=== PATIENT | male | born 1945 | race Asian ===

== ENCOUNTER 2023-11-01 12:01 | Emergency (ER) | payer MEDICARE, OTHER, SELFPAY ==
[2023-11-01] VITALS (7 sets, daily range): BP systolic 107–132; BP diastolic 58–77; BMI 26.4
[2023-11-01 12:25] LABS: % Basophils 0.2 % (0-2); % Eosinophils 0.9 % (0-6); % Lymphocytes 14.1 % (20.5-51.1); % Neutrophils 74.8 % (42.2-75.2); Absolute Eosinophils 0.1 10^3/uL (0-0.7); Absolute Immature Granulocytes 0.1 10^3/uL (0-0.05); Absolute Lymphocytes 1.4 10^3/uL (1.2-3.4); Absolute Monocytes 0.9 10^3/uL (0.1-0.6); Absolute Neutrophils 7.3 10^3/uL (1.4-6.5); Hematocrit 30.1 % (39.0-52.0); Hemoglobin 10.2 g/dL (13.0-18.0); Mean Corp Hgb Conc. 33.9 g/dL (33.0-37.0); Mean Corpuscular Hgb 29.8 pg (27.0-31.0); Mean Platelet Volume 8.9 fL (7.4-10.4); Nucleated Red Blood Cells % 0 % (-); Platelet Count 393 10^3/uL (130-400); Red Blood Cell Count 3.42 10^6/uL (4.70-6.10); Red Cell Dist. Width 13.6 % (11.5-14.5); White Blood Cell Count 9.7 10^3/uL (4.8-10.8)
[2023-11-01 12:37] LABS: INR 1.15; PT 14.7 Sec (11.4-14.6)
[2023-11-01 12:38] LABS: ALT (SGPT) 54 U/L (0-50); AST (SGOT) 37 U/L (17-59); Albumin 3.9 g/dl (3.5-5.0); Alkaline Phosphatase 69 U/L (38-126); Blood Urea Nitrogen 28 mg/dl (9-20); Calcium 9.4 mg/dl (8.4-10.2); Carbon Dioxide 28 mmol/L (22-30); Chloride 97 mmol/L (98-107); Estimated Creatinine Clearance 80 ml/min; Glucose 217 mg/dl (70-99); Potassium 5.1 mmol/L (3.5-5.1); Sodium 131 mmol/L (135-145); eGFR > 60.00
[2023-11-01 12:45] LABS: Lactic Acid 2.4 mmol/L (0.7-2.0)
--- NOTE | 2023-11-01 12:50 | ED.GENMED ---
History of Present Illness
General
Chief Complaint: Abdominal Symptoms
Source: patient
Exam Limitations: none
Time Seen by Provider: 11/01/23 12:08
Nursing documentation reviewed up to this point in time: agreed with
Travel History
Have you had any contact with someone who has COVID-19?: No
Do you have any symptoms of coronavirus? Fever > 100 degrees, chills, cough, shortness of breath, sore throat, loss of taste or smell, muscle aches, or headache?: No
History of Present Illness
History of Present Illness:
Patient is a 78-year-old male with history of stroke [facility] sent for abdominal distention painful abdomen. Patient is awake alert. Family at bedside. Due to stroke patient has difficulty with his words. He does repeat the word ,'gas.'
Nurse at [facility] reports pt's abdomen appears distended and he was tender to palpation. Pt's last BM was the Oct 30. no vomiting.
Pt as per family eats pureed diet twice a day and at night time he is on tube feeling 320 ml during sleep .
He was recently started on antibx (Augmentin ) yesterday for URI . Nurse reports pt was coughing /congestion. pt had neg chest xray.
Past History
Past History
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
ED Past Surgical History: None
Social History
Tobacco: Non-smoker
Alcohol: None
Employment: Retired
Family History
Family History: Other (Reviewed and noncontributory)
Phy Exam
General Physical Exam
General Presentation: no apparent distress
General age: appears stated age
General Skin: warm and dry
General Habitus: elderly
General Mental: alert
Cardiovascular Exam
Cardiovascular Exam: regular rate/rhythm, no murmur and normal peripheral pulses
Pulmonary Exam
Pulmonary Exam: no respiratory distress and other (slight crackles at b/l bases )
Gastrointestinal Exam
Gastrointestinal Exam: soft and other (Abdomen soft nontender patient does not grimace on palpation PEG tube in place appears mildly distended)
Neurological Exam
Neurological Exam: alert
Musculoskeletal Exam
Musculoskeletal Exam: full ROM
Skin Exam
Skin Exam: normal color and warm/dry
Psychiatric Exam
Psychiatric Exam: normal mood/affect
Course
Orders/Labs/Results
Orders:
Orders
11/01/23 12:06
Electrocardiogram (*1) Urgent
Reason for Study: Other
Other Reason for Exam: Possible Sepsis
11/01/23 12:07
EKG- Treatment ONCE
CR Chest - 2 Views Urgent
Comment:
Reason For Exam: suspected infection
11/01/23 12:15
Complete Blood Count/With Diff Urgent
Comprehensive Metabolic Panel Urgent
Prothrombin Time Urgent
Blood Culture Q30M
YAKELIN Source: Blood/Venous
Specimen Description:
Comment: FROM 2 SEPARATE SITES
11/01/23 12:16
Lactic Acid Q4H
Comment: ON ICE, CANCEL 2ND ORDER IF FIRST LACTIC ACID LEVEL <2
11/01/23 12:54
0.9% Sodium Chloride 1000 ml [Nss] 1,000 ml IV BOLUS
11/01/23 12:55
Blood Culture Q30M
YAKELIN Source: Blood/Venous
Specimen Description:
Comment: FROM 2 SEPARATE SITES
11/01/23 12:57
Straight cath- Treatment ONCE
11/01/23 12:59
CT Abd/pelvis W Iv Cont Urgent
Comment:
Reason For Exam: abd pain
11/01/23 13:00
COVID-19 Antigen Urgent
Source: Nasal Swab
Influenza A+B Rapid Molecular Urgent
YAKELIN Source: Nasal Swab
Specimen Description:
11/01/23 13:09
UA Reflex to Culture [Urinalysis Reflex To Culture] Urgent
Date Specimen was Collected: 11/01/23
Time Specimen was Collected: 13:08
Urine Microscopic Reflex Cult Urgent
11/01/23 17:00
Lactic Acid Q4H
Comment: ON ICE, CANCEL 2ND ORDER IF FIRST LACTIC ACID LEVEL <2
11/01/23 17:48
Enema- Treatment ONCE
Type: Soap Suds
Amount: x1
Abnormal Lab Results
11/01/23 11/01/23 11/01/23
12:15 12:16 13:09
RBC 3.42 L 10^6/uL
(4.70-6.10)
Hgb 10.2 L g/dL
(13.0-18.0)
Hct 30.1 L %
(39.0-52.0)
Abs Immat Gran (auto) 0.1 H 10^3/uL
(0-0.05)
Absolute Neuts (auto) 7.3 H 10^3/uL
(1.4-6.5)
Absolute Monos (auto) 0.9 H 10^3/uL
(0.1-0.6)
Immature Gran % 1.0 H %
(0-0.5)
Lymphocytes % 14.1 L %
(20.5-51.1)
PT 14.7 H Sec
(11.4-14.6)
Sodium 131 L mmol/L
(135-145)
Chloride 97 L mmol/L
(98-107)
BUN 28 H mg/dl
(9-20)
Glucose 217 H mg/dl
(70-99)
Lactic Acid 2.4 H mmol/L
(0.7-2.0)
ALT 54 H U/L
(0-50)
Urine Urobilinogen 2+ A
(Neg - 1+)
Leukocyte Esterase Rfl Trace A
(Negative)
Urine Bacteria (Reflex) Few A
(Negative)
Urine Glucose 1+ A
(Negative)
11/01/23 12:15
11/01/23 12:15
Vital Signs
Initial and Last Documented VS:
Initial Vital Signs
Temp Pulse Resp BP Pulse Ox
98.1 F 64 16 132/69 97
11/01/23 12:05 11/01/23 12:05 11/01/23 12:05 11/01/23 12:05 11/01/23 12:05
Last Documented Vital Signs
Temp Pulse Resp BP Pulse Ox
98.0 F 58 13 132/71 97
11/01/23 18:06 11/01/23 18:06 11/01/23 13:45 11/01/23 18:06 11/01/23 18:06
Proposal Rep consulted with Physician
Proposal Rep consulted with physician?: Yes
Name of Physician Consulted: Millie
*Radiology
Radiology exam reviewed: radiology read reviewed (CAT scan shows large amount of stool throughout the entire colon consistent with constipation no free air no fluid collection to suggest abscess)
*Pulse Oximetry
Patient hypoxic: no
*Critical Care Note
Total Time (30-74mins, 75-104mins- exclusive of procedures): Not Applicable
ED Attending Note
-
Portions of this chart may have been created with voice recognition software.� Occasional wrong word or��sound alike� substitutions may have occurred due to the inherent limitations of voice recognition software.
Discharge Plan
Departure
Patient Disposition: Home (Routine Discharge)
Date of Disposition: 11/01/23
Time of Disposition: 19:04
Patient with high blood pressure during this ER visit?: Yes
Condition: Fair
Covid-19: Not Applicable
Discharge Problem:
Acute constipation
Instructions: Constipation, Adult (DC)
Prescriptions:
No Action
olmesartan 20 mg Tablet
20 mg feeding tube DAILY@1300 Qty: 0 0RF
cyanocobalamin (vitamin B-12) 1,000 mcg Tablet
1,000 mcg feeding tube DAILY Qty: 0 0RF
magnesium hydroxide [Milk of Magnesia] 400 mg/5 mL Suspension
30 ml PO HSPRN PRN (Reason: CONSTIPATION)
acetaminophen 160 mg/5 mL Elixir
640 mg feeding tube Q4HPRN PRN (Reason: MILD PAIN, FEVER>100.4)
docusate sodium 50 mg/5 mL liquid
100 mg feeding tube BID
atorvastatin 80 mg tablet
80 mg feeding tube QPM
clopidogrel 75 mg tablet
75 mg feeding tube DAILY
sennosides [senna] 8.8 mg/5 mL syrup
17.6 mg feeding tube BID
spironolactone 25 mg tablet
25 mg feeding tube DAILY
bisacodyl 10 mg suppository
10 mg [place] [id number] PRN (Reason: MOM/LACTULOSE INEFFECTIVE)
carvedilol [Coreg] 12.5 mg Tablet
12.5 mg feeding tube BID
ipratropium-albuterol [DuoNeb] 0.5 mg-3 mg(2.5 mg base)/3 mL Solution For Nebulization
3 ml INHALATION R Q8HPRN PRN (Reason: sob)
lidocaine 4 % Adhesive Patch,Medicated
1 patch TOPICAL SUTUWEFRSA
lidocaine 4 % Adhesive Patch,Medicated
1 patch TOPICAL MOTH
dextromethorphan-guaifenesin [Diabetic Tussin] 10-100 mg/5 mL Liquid
10 ml PO Q6HPRN PRN (Reason: cough)
Chloraseptic Aerosol,[place]
1 spray MUCOUS MEMBRANE Q2HPRN PRN (Reason: sore throat)
trazodone 100 mg Tablet
100 mg feeding tube HS
dexamethasone 1 mg Tablet
1 mg feeding tube QPM
oseltamivir [Tamiflu] 75 mg Capsule
75 mg feeding tube DAILY
Patient Comments:
patient to start 10/28/23
metformin 1,000 mg Tablet
1,000 mg feeding tube BID
aspirin 81 mg Tablet,Chewable
81 mg feeding tube DAILY
amoxicillin-pot clavulanate [Augmentin] 875-125 mg Tablet
1 tab feeding tube TID
Patient Comments:
patient first dose on 10/31/23 @1600
escitalopram oxalate [Lexapro] 20 mg Tablet
20 mg feeding tube QPM
Saccharomyces boulardii [Florastor] 250 mg Capsule
250 mg feeding tube DAILY
Patient Comments:
for 10 days, for start 11/01/23
insulin glargine [Lantus Solostar U-100 Insulin] 100 unit/mL (3 mL) Insulin Pen
27 unit SC HS
diclofenac sodium [Voltaren] 1 % Gel
2 g TOPICAL Q8H
diclofenac sodium [Voltaren] 1 % Gel
2 g TOPICAL BID
diclofenac sodium [Voltaren] 1 % Gel
2 g TOPICAL DAILYPRN PRN (Reason: lower back, when lidocaine not one)
cholecalciferol (vitamin D3) 1,250 mcg (50,000 unit) Tablet
1,250 mcg feeding tube QMONTH
Rx Instructions:
every Sunday of each month
baclofen 5 mg Tablet
2.5 mg feeding tube DAILY
baclofen 5 mg Tablet
5 mg feeding tube HS
insulin aspart U-100 [Novolog FlexPen U-100 Insulin] 100 unit/mL (3 mL) insulin pen
0 unit SC ACHS
Patient Comments:
0-200=0 units, 201-250=2units, 251-300=4 units, 301-350=6 units
Referrals:
NONE,* [Family Provider] -
Activity Restrictions/Additional Instructions:
CAT scan was performed today which showed a large amount of stool through the entire colon consistent with constipation. Patient was given enema here and did move his bowels. There is no free air or collection to suggest abscess. PEG tube is
normally visualized. Patient was found to be mildly dehydrated and was given nss x1 liter. Chest x-ray was negative. Patient was found negative for COVID and flu
There is however an 8 mm hypodensity abnormality as discussed on pancreas region. Follow-up recommended including MRI of the abdomen.
Return if any worsening of symptoms including increased pain vomiting or any further concerns
Interventions
Interventions:
*Risk Screen - Suicide Last Done: 11/01/23 12:05
*General Assessment Last Done: 11/01/23 12:05
*Neglect/Abuse Screening Last Done: 11/01/23 12:05
ED- Fall Risk Assessment Last Done: 11/01/23 12:05
*ED COVID-19 Vaccine History Last Done: 11/01/23 12:05
AR-Vvdivf-Dfkxztrkqy Assessment Last Done: 11/01/23 12:05
[2023-11-01] MEDS: NSS 1000 IV (13:22)
[2023-11-01 13:56] LABS: COVID-19 Antigen Negative (Negative)
[2023-11-01 14:10] LABS: Urine Albumin Trace (Neg - Trace); Urine Bilirubin Negative (Negative); Urine Character Clear (Clear); Urine Color Yellow; Urine Glucose 1+ (Negative); Urine Ketone Negative (Negative); Urine Leukocyte Trace (Negative); Urine Nitrite Negative (Negative); Urine Occult Blood Negative (Negative); Urine Urobilinogen 2+ (Neg - 1+)
[2023-11-01 14:21] LABS: Urine Red Blood Cell 0-2 /HPF (0-2)
[2023-11-01 14:22] LABS: Urine Bacteria Few (Negative)
[2023-11-01 17:22] LABS: Lactic Acid 1.5 mmol/L (0.7-2.0)
== END 2023-11-01 21:13 | disposition home or self-care (01) ==
LOC: EMR 12:01
PROVIDERS: Nurse Practitioner; EMERGENCY PHYSICIAN Emergency Medicine
DX: K59.00 Constipation, unspecified (principal); I10 Essential (primary) hypertension; Z11.52 Encounter for screening for COVID-19
CPT/HCPCS: 99285; 96360; 71046; 74177; 80053; 81003; 81015; 83605; 85025; 85610; 87040; 87502; 87811; 93005; Q9967

== ENCOUNTER 2023-11-14 11:03 | Emergency (ER) | payer MEDICARE, MEDICAID, SELFPAY ==
--- NOTE | 2023-11-14 11:06 | ED.GENMED ---
History of Present Illness
General
Chief Complaint: Catheter/Tube Problem
Time Seen by Provider: 11/14/23 11:06
Travel History
Have you had any contact with someone who has COVID-19?: No
Do you have any symptoms of coronavirus? Fever > 100 degrees, chills, cough, shortness of breath, sore throat, loss of taste or smell, muscle aches, or headache?: No
History of Present Illness
History of Present Illness:
HPI: Patient presents by ambulance from [facility] for evaluation of G-tube site. The notes from [facility] indicate that there was oozing at the site and they request change of the tube. The patient is a very limited historian. However
he denies any pain.
EXAM:
GENERAL: Appears in no distress
HEENT: Moist oral mucosa
CARDIOVASCULAR: Regular rate and rhythm
PULMONARY: No respiratory distress, breathing is nonlabored, equal and clear breath sounds
ABDOMEN: Soft and nontender with no peritoneal signs, there is some scant yellow discharge at the G-tube site but no palpable abnormality and no significant erythema or signs of infection
NEUROLOGIC: The patient has a nonfocal neurologic examination, some dysarthria is noted which I suspect is chronic
EXTREMITIES: Moves all extremities weakly equally, no tenderness, no edema
PYSCHIATRIC: Very limited historian, poor insight and judgment
ED COURSE:
11:10 AM: I initially evaluated patient
NUMBER AND COMPLEXITY OF PROBLEMS ADDRESSED AT THE ENCOUNTER
� Chronic conditions affecting care: History of CVA. He also has history of high blood pressure and diabetes. BPH.
� Acute Exacerbation and/or Progression of Chronic Illness: This is an acute problem
� Differential Diagnosis includes: G-tube malfunction
AMOUNT AND/OR COMPLEXITY OF DATA TO BE REVIEWED AND ANALYZED
� I performed an independent evaluation of and my interpretation is:
EKG:
CT:
X-rays: X-ray confirms successful placement of new feeding tube
Laboratory Studies:
Other:
� Review of other/old records: I reviewed discharge summary from September 2022. At that time he was admitted with sepsis due to COVID-19 viral pneumonia and required oxygen and was on Decadron. He was also found to have a
Proteus UTI at the time. He also was found to have 'metabolic encephalopathy'. On prior admission he was found to have a CVA. He also has history of high blood pressure and diabetes
� Clinical information was obtained by an independent historian: I reviewed the notes from [facility]
� Prescriptions/Medications Considered but not given:
� Further testing considered but not performed:
RISK OF COMPLICATIONS AND/OR MORBIDITY OR MORTALITY OF PATIENT MANAGEMENT
� Social determinants of health affecting care: Comes in from [facility]
� Discussion with other providers:
� Escalation of care including admission/observation vs risk of discharge considered: Will plan to change the tube and reassess. At 11:20 AM, I changed to a new tube. I removed the externally removable G-tube without difficulty
on 1 attempt and then placed a new 20 [place] catheter and inflated the balloon with 14 mL of saline.
Past History
Past History
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
ED Past Surgical History: None
Social History
Tobacco: Non-smoker
Alcohol: None
Employment: Retired
Family History
Family History: Other (Reviewed and noncontributory)
Phy Exam
Physical Exam
Physical Exam:
See HPI
Course
Orders/Labs/Results
Orders:
Orders
11/14/23 11:21
CR Cont Inj Eval Tube(by Rad) Urgent
Reason For Exam: TUBE CHANGED, EVAL PLACEMENT
Vital Signs
Initial and Last Documented VS:
Initial Vital Signs
Temp Pulse Resp BP Pulse Ox
98.7 F 69 18 125/73 99
11/14/23 11:07 11/14/23 11:07 11/14/23 11:07 11/14/23 11:07 11/14/23 11:07
Last Documented Vital Signs
Temp Pulse Resp BP Pulse Ox
98.7 F 69 18 128/75 99
11/14/23 11:07 11/14/23 12:00 11/14/23 12:00 11/14/23 12:00 11/14/23 12:00
Procedures
Other
Indication for procedure:: G-tube malfunction
Consent form signed: No
Additional Procedure:
I placed a new 20 Jama[place] G-tube on 1 attempt with no difficulty. Tube placement confirmation study pending.
*Critical Care Note
Total Time (30-74mins, 75-104mins- exclusive of procedures): Not Applicable
ED Attending Note
-
Portions of this chart may have been created with voice recognition software.� Occasional wrong word or��sound alike� substitutions may have occurred due to the inherent limitations of voice recognition software.
Discharge Plan
Departure
Patient Disposition: Home (Routine Discharge)
Date of Disposition: 11/14/23
Time of Disposition: 13:11
Patient with high blood pressure during this ER visit?: Yes
Discharge Problem:
Complaint associated with gastric tube
Prescriptions:
No Action
olmesartan 20 mg Tablet
20 mg feeding tube DAILY@1300 Qty: 0 0RF
cyanocobalamin (vitamin B-12) 1,000 mcg Tablet
1,000 mcg feeding tube DAILY Qty: 0 0RF
magnesium hydroxide [Milk of Magnesia] 400 mg/5 mL Suspension
30 ml PO HSPRN PRN (Reason: CONSTIPATION)
acetaminophen 160 mg/5 mL Elixir
640 mg feeding tube Q4HPRN PRN (Reason: MILD PAIN, FEVER>100.4)
docusate sodium 50 mg/5 mL liquid
100 mg feeding tube BID
atorvastatin 80 mg tablet
80 mg feeding tube QPM
clopidogrel 75 mg tablet
75 mg feeding tube DAILY
sennosides [senna] 8.8 mg/5 mL syrup
17.6 mg feeding tube BID
spironolactone 25 mg tablet
25 mg feeding tube DAILY
bisacodyl 10 mg suppository
10 mg [place] [id number] PRN (Reason: MOM/LACTULOSE INEFFECTIVE)
carvedilol [Coreg] 12.5 mg Tablet
12.5 mg feeding tube BID
ipratropium-albuterol [DuoNeb] 0.5 mg-3 mg(2.5 mg base)/3 mL Solution For Nebulization
3 ml INHALATION R Q8HPRN PRN (Reason: sob)
lidocaine 4 % Adhesive Patch,Medicated
1 patch TOPICAL SUTUWEFRSA
lidocaine 4 % Adhesive Patch,Medicated
1 patch TOPICAL MOTH
dextromethorphan-guaifenesin [Diabetic Tussin] 10-100 mg/5 mL Liquid
10 ml PO Q6HPRN PRN (Reason: cough)
Chloraseptic Aerosol,[place]
1 spray MUCOUS MEMBRANE Q2HPRN PRN (Reason: sore throat)
trazodone 100 mg Tablet
100 mg feeding tube HS
dexamethasone 1 mg Tablet
1 mg feeding tube QPM
oseltamivir [Tamiflu] 75 mg Capsule
75 mg feeding tube DAILY
Patient Comments:
patient to start 10/28/23
metformin 1,000 mg Tablet
1,000 mg feeding tube BID
aspirin 81 mg Tablet,Chewable
81 mg feeding tube DAILY
amoxicillin-pot clavulanate [Augmentin] 875-125 mg Tablet
1 tab feeding tube TID
Patient Comments:
patient first dose on 10/31/23 @1600
escitalopram oxalate [Lexapro] 20 mg Tablet
20 mg feeding tube QPM
Saccharomyces boulardii [Florastor] 250 mg Capsule
250 mg feeding tube DAILY
Patient Comments:
for 10 days, for start 11/01/23
insulin glargine [Lantus Solostar U-100 Insulin] 100 unit/mL (3 mL) Insulin Pen
27 unit SC HS
diclofenac sodium [Voltaren] 1 % Gel
2 g TOPICAL Q8H
diclofenac sodium [Voltaren] 1 % Gel
2 g TOPICAL BID
diclofenac sodium [Voltaren] 1 % Gel
2 g TOPICAL DAILYPRN PRN (Reason: lower back, when lidocaine not one)
cholecalciferol (vitamin D3) 1,250 mcg (50,000 unit) Tablet
1,250 mcg feeding tube QMONTH
Rx Instructions:
every Sunday of each month
baclofen 5 mg Tablet
2.5 mg feeding tube DAILY
baclofen 5 mg Tablet
5 mg feeding tube HS
insulin aspart U-100 [Novolog FlexPen U-100 Insulin] 100 unit/mL (3 mL) insulin pen
0 unit SC ACHS
Patient Comments:
0-200=0 units, 201-250=2units, 251-300=4 units, 301-350=6 units
Referrals:
Aleksander Vasquez DO [Family Provider] -
Interventions
Interventions:
*Risk Screen - Suicide Last Done: 11/14/23 11:35
*General Assessment Last Done: 11/14/23 11:35
*Neglect/Abuse Screening Last Done: 11/14/23 11:35
*ED COVID-19 Vaccine History Last Done: 11/14/23 11:07
QL-Iafyqk-Soayzhjiju Assessment Last Done: 11/14/23 11:38
ED-Male Genitourinary Assessment Last Done: 11/14/23 11:38
[2023-11-14 11:07] VITALS: BP 125/73
--- NOTE | 2023-11-14 11:36 | EDRN ---
[facility] at bedside, the pt has a documented history of Dementia and Aphasia folloing CVA. pt is a poor historian and not able to answer questions appropriately.
[2023-11-14 12:00] VITALS: BP 128/75
[2023-11-14 13:39] VITALS: BP 128/64
[2023-11-14 17:20] VITALS: BP 132/85
== END 2023-11-14 17:45 | disposition home or self-care (01) ==
LOC: EMR 11:03
PROVIDERS: EMERGENCY PHYSICIAN Emergency Medicine; FAMILY PHYSICIAN Student in an Organized Health Care Education/Training Program
DX: Z43.1 Encounter for attention to gastrostomy (principal); E11.9 Type 2 diabetes mellitus without complications; E78.00 Pure hypercholesterolemia, unspecified; I10 Essential (primary) hypertension; Z86.73 Personal history of transient ischemic attack (TIA), and cerebral infarction without residual deficits
CPT/HCPCS: 99283; 43762; 49465

== ENCOUNTER → 2024-01-02 09:02 | Outpatient (REF) | payer MEDICARE, MEDICAID, SELFPAY ==
[2024-01-02 12:48] LABS: Glycohemoglobin (HgbA1c) 8.2 % (4.0-5.6)
== END ==
LOC: OLABN 09:02
PROVIDERS: ATTENDING PHYSICIAN Student in an Organized Health Care Education/Training Program
DX: E11.9 Type 2 diabetes mellitus without complications (principal)
CPT/HCPCS: 36415; 83036

== ENCOUNTER → 2024-01-16 11:11 | Outpatient (REF) | payer MEDICARE, MEDICAID, SELFPAY ==
[2024-01-16 11:50] LABS: % Basophils 0.4 % (0-2); % Eosinophils 3.2 % (0-6); % Immature Granulocytes 0.7 % (0-0.5); % Lymphocytes 13.7 % (20.5-51.1); % Monocytes 7.5 % (1.7-9.3); % Neutrophils 74.5 % (42.2-75.2); Absolute Eosinophils 0.4 10^3/uL (0-0.7); Absolute Immature Granulocytes 0.1 10^3/uL (0-0.05); Absolute Lymphocytes 1.5 10^3/uL (1.2-3.4); Absolute Monocytes 0.8 10^3/uL (0.1-0.6); Absolute Neutrophils 8.1 10^3/uL (1.4-6.5); Hematocrit 29.6 % (39.0-52.0); Hemoglobin 9.5 g/dL (13.0-18.0); Mean Corp Hgb Conc. 32.1 g/dL (33.0-37.0); Mean Corpuscular Hgb 29.4 pg (27.0-31.0); Mean Corpuscular Volume 91.6 fL (80.0-94.0); Mean Platelet Volume 9.9 fL (7.4-10.4); Nucleated Red Blood Cells % 0 % (-); Platelet Count 314 10^3/uL (130-400); Red Blood Cell Count 3.23 10^6/uL (4.70-6.10); Red Cell Dist. Width 13.2 % (11.5-14.5); White Blood Cell Count 10.9 10^3/uL (4.8-10.8)
[2024-01-16 13:01] LABS: Glycohemoglobin (HgbA1c) 8.3 % (4.0-5.6)
[2024-01-16 13:17] LABS: ALT (SGPT) 63 U/L (0-50); AST (SGOT) 46 U/L (17-59); Albumin 3.5 g/dl (3.5-5.0); Alkaline Phosphatase 71 U/L (38-126); Blood Urea Nitrogen 26 mg/dl (9-20); Carbon Dioxide 27 mmol/L (22-30); Chloride 96 mmol/L (98-107); Glucose 251 mg/dl (70-99); HDL Cholesterol 21 mg/dl; LDL Cholesterol, Calculated 19 mg/dl; Potassium 4.7 mmol/L (3.5-5.1); Sodium 132 mmol/L (135-145); Total Bilirubin 0.4 mg/dl (0.2-1.3); Total Cholesterol 78 mg/dl (50-199); Total Protein 6.3 g/dl (6.3-8.2); Triglyceride 190 mg/dl (10-149); Very Low Density Lipoprotein 38 mg/dl (0-30); eGFR > 60.00
== END ==
LOC: OLABN 11:11
PROVIDERS: ATTENDING PHYSICIAN Student in an Organized Health Care Education/Training Program
DX: R78.5 Finding of other psychotropic drug in blood (principal); E11.9 Type 2 diabetes mellitus without complications
CPT/HCPCS: 36415; 80053; 80061; 83036; 85025

== ENCOUNTER 2024-05-10 16:46 | Emergency (ER) | payer MEDICARE, MEDICAID, SELFPAY ==
[2024-05-10] VITALS (10 sets, daily range): BP systolic 130–157; BP diastolic 69–88; BMI 25.5
[2024-05-10 17:35] LABS: % Basophils 0.4 % (0-2); % Eosinophils 1.3 % (0-6); % Immature Granulocytes 0.5 % (0-0.5); % Monocytes 8.6 % (1.7-9.3); % Neutrophils 69.2 % (42.2-75.2); Absolute Eosinophils 0.1 10^3/uL (0-0.7); Absolute Lymphocytes 1.7 10^3/uL (1.2-3.4); Absolute Monocytes 0.7 10^3/uL (0.1-0.6); Absolute Neutrophils 5.9 10^3/uL (1.4-6.5); Hematocrit 32.8 % (39.0-52.0); Hemoglobin 11.3 g/dL (13.0-18.0); Mean Corp Hgb Conc. 34.5 g/dL (33.0-37.0); Mean Corpuscular Hgb 29.7 pg (27.0-31.0); Mean Corpuscular Volume 86.1 fL (80.0-94.0); Mean Platelet Volume 9.8 fL (7.4-10.4); Nucleated Red Blood Cells % 0 % (-); Platelet Count 243 10^3/uL (130-400); Red Blood Cell Count 3.81 10^6/uL (4.70-6.10); Red Cell Dist. Width 14.5 % (11.5-14.5); White Blood Cell Count 8.6 10^3/uL (4.8-10.8)
[2024-05-10 17:48] LABS: ALT (SGPT) 44 U/L (0-50); AST (SGOT) 35 U/L (17-59); Albumin 4.3 g/dl (3.5-5.0); Alkaline Phosphatase 58 U/L (38-126); Blood Urea Nitrogen 24 mg/dl (9-20); Calcium 9.8 mg/dl (8.4-10.2); Carbon Dioxide 30 mmol/L (22-30); Chloride 96 mmol/L (98-107); Estimated Creatinine Clearance 97 ml/min; Glucose 186 mg/dl (70-99); Lipase 108 U/L (23-300); Potassium 4.5 mmol/L (3.5-5.1); Sodium 136 mmol/L (135-145); Total Bilirubin 0.7 mg/dl (0.2-1.3); eGFR > 60.00
--- NOTE | 2024-05-10 18:30 | ED.GENMED ---
History of Present Illness
General
Chief Complaint: Catheter/Tube Problem
Time Seen by Provider: 05/10/24 18:26
History of Present Illness
History of Present Illness:
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 Per patient fpc he was having abdominal
tenderness which is unusual. He does have a baseline distended abdomen. They attempted to replace his PEG tube but were unsuccessful. Patient is able to state yes that he is having pain. He denies any vomiting. He denies any fevers. Normal
bowel movements. Otherwise history is limited given patient's aphasia
Past History
Past History
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
ED Past Surgical History: None
Social History
Tobacco: Non-smoker
Alcohol: None
Employment: Retired
Family History
Family History: Other (Reviewed and noncontributory)
Phy Exam
Physical Exam
Physical Exam:
GENERAL: in no acute distress
HEENT: normocephalic, extraocular movements intact, moist oral mucosa
NECK: normal inspection
RESPIRATORY: no respiratory distress, clear to auscultation bilaterally
CARDIOVASCULAR: regular rate and rhythm
ABDOMEN/: soft, non-distended, diffusely tender, PEG tube in place no rebound or guarding
EXTREMITIES: non-tender, no edema/swelling
NEUROLOGIC: awake and alert, answers yes or no questions
SKIN: warm
Course
Orders/Labs/Results
Orders:
Orders
05/10/24 17:27
Complete Blood Count/With Diff Urgent
Comprehensive Metabolic Panel Urgent
Lipase Urgent
05/10/24 18:30
CT Abd/pelvis W Iv Cont Urgent
Comment:
Reason For Exam: abdominal pain
05/10/24 18:34
Add On- LAB Stat
Tests Added?: lactate
05/10/24 18:52
Lactic Acid Routine
Comment: FROM ADD ON
05/10/24 21:46
Tube Check [CR Cont Inj Eval Tube(by Rad)] Urgent
Comment:
Reason For Exam: g tube replacment
Abnormal Lab Results
05/10/24
17:27
RBC 3.81 L 10^6/uL
(4.70-6.10)
Hgb 11.3 L g/dL
(13.0-18.0)
Hct 32.8 L %
(39.0-52.0)
Absolute Monos (auto) 0.7 H 10^3/uL
(0.1-0.6)
Lymphocytes % 20.0 L %
(20.5-51.1)
Chloride 96 L mmol/L
(98-107)
BUN 24 H mg/dl
(9-20)
Creatinine 0.6 L mg/dL
(0.7-1.3)
Glucose 186 H mg/dl
(70-99)
05/10/24 17:27
05/10/24 17:27
Vital Signs
Initial and Last Documented VS:
Initial Vital Signs
Temp Pulse Resp BP Pulse Ox
98.8 F 78 18 156/82 99
05/10/24 16:52 05/10/24 16:52 05/10/24 16:52 05/10/24 16:52 05/10/24 16:52
Last Documented Vital Signs
Temp Pulse Resp BP Pulse Ox
98.8 F 75 13 142/76 99
05/10/24 16:52 05/10/24 20:00 05/10/24 20:00 05/10/24 19:00 05/10/24 20:00
MDM/Problems Addressed
Differential Diagnosis Includes:
Patient is a 78-year-old with history of CVA with aphasia dysphagia at baseline requiring PEG tube presenting to the emergency department abdominal pain and PEG tube malfunction. Vitals unremarkable and exam does show distended abdomen that is
diffusely tender with a PEG tube in place. Unclear etiology of patient's pain. Could be diverticulitis versus mesenteric ischemia versus obstruction though less likely. Will obtain blood work and CT scan.
*Critical Care Note
Total Time (30-74mins, 75-104mins- exclusive of procedures): Not Applicable
Update Note
Update Note:
CT scan negative. Blood work unremarkable. Lactate normal. On reevaluation patient does state that his abdominal pain is resolved. I did replace G-tube with 20 [place] G-tube. It was inserted easily and still with 15 cc of sterile saline. Tube
check with successful. Will discharge patient at this time
ED Attending Note
-
Portions of this chart may have been created with voice recognition software.� Occasional wrong word or��sound alike� substitutions may have occurred due to the inherent limitations of voice recognition software.
Discharge Plan
Departure
Patient Disposition: Home (Routine Discharge)
Date of Disposition: 05/10/24
Time of Disposition: 22:51
Patient with high blood pressure during this ER visit?: No
Discharge Problem:
Abdominal pain
Prescriptions:
No Action
olmesartan 20 mg Tablet
20 mg feeding tube DAILY@1300 Qty: 0 0RF
cyanocobalamin (vitamin B-12) 1,000 mcg Tablet
1,000 mcg feeding tube DAILY Qty: 0 0RF
magnesium hydroxide [Milk of Magnesia] 400 mg/5 mL Suspension
30 ml PO HSPRN PRN (Reason: CONSTIPATION)
acetaminophen 160 mg/5 mL Elixir
640 mg feeding tube Q4HPRN PRN (Reason: MILD PAIN, FEVER>100.4)
docusate sodium 50 mg/5 mL liquid
100 mg feeding tube BID
atorvastatin 80 mg tablet
80 mg feeding tube QPM
clopidogrel 75 mg tablet
75 mg feeding tube DAILY
sennosides [senna] 8.8 mg/5 mL syrup
17.6 mg feeding tube BID
spironolactone 25 mg tablet
25 mg feeding tube DAILY
bisacodyl 10 mg suppository
10 mg [place] DAILYPRN PRN (Reason: q 3 days when no BM & MOM/Lactulose is ineffective)
carvedilol [Coreg] 12.5 mg Tablet
12.5 mg feeding tube BID
lidocaine 4 % Adhesive Patch,Medicated
1 patch TOPICAL DAILY@0600
Chloraseptic Aerosol,[place]
1 spray PO Q2HPRN PRN (Reason: sore throat)
trazodone 100 mg Tablet
100 mg feeding tube HS
metformin 1,000 mg Tablet
1,000 mg feeding tube BID
aspirin 81 mg Tablet,Chewable
81 mg feeding tube DAILY
escitalopram oxalate [Lexapro] 20 mg Tablet
20 mg feeding tube QPM
insulin glargine [Lantus Solostar U-100 Insulin] 100 unit/mL (3 mL) Insulin Pen
29 unit SC HS
diclofenac sodium [Voltaren] 1 % Gel
2 g TOPICAL Q8H
diclofenac sodium [Voltaren] 1 % Gel
2 g TOPICAL BID
diclofenac sodium [Voltaren] 1 % Gel
2 g TOPICAL DAILYPRN PRN (Reason: lower back, when lidocaine not one)
cholecalciferol (vitamin D3) 1,250 mcg (50,000 unit) Tablet
1,250 mcg feeding tube QMONTH
Rx Instructions:
every Sunday of each month
baclofen 5 mg Tablet
2.5 mg feeding tube DAILY
baclofen 5 mg Tablet
5 mg feeding tube HS
insulin aspart U-100 [Novolog FlexPen U-100 Insulin] 100 unit/mL (3 mL) insulin pen
0 - 10 sliding scale dose SC ACHS
Patient Comments:
0-200=0 units, 201-250=2units, 251-300=4 units, 301-350=6 units, 351-400=8 units, >400=10 units call MD
Referrals:
Aleksander Vasquez DO [Family Provider] -
Activity Restrictions/Additional Instructions:
While you were here we did replace your G-tube.
Interventions
Interventions:
*Risk Screen - Suicide Last Done: 05/10/24 16:52
*General Assessment Last Done: 05/10/24 16:52
*Neglect/Abuse Screening Last Done: 05/10/24 16:52
*ED COVID-19 Vaccine History Last Done: 05/10/24 16:52
JZ-[place]-Gyrhleyjme Assessment Last Done: 05/10/24 19:39
ED-Male Genitourinary Assessment Last Done: 05/10/24 17:04
Discharge Date and Time
Print Language: [place]EN[place]
[2024-05-10 19:57] LABS: Lactic Acid 1.6 mmol/L (0.7-2.0)
[2024-05-11 01:32] VITALS: BP 133/95
[2024-05-11 02:00] VITALS: BP 137/70
== END 2024-05-11 02:50 | disposition home or self-care (01) ==
LOC: EMR 16:46
PROVIDERS: EMERGENCY PHYSICIAN Student in an Organized Health Care Education/Training Program; FAMILY PHYSICIAN Student in an Organized Health Care Education/Training Program
DX: R10.9 Unspecified abdominal pain (principal); I69.320 Aphasia following cerebral infarction; E11.9 Type 2 diabetes mellitus without complications; I10 Essential (primary) hypertension; E78.00 Pure hypercholesterolemia, unspecified
CPT/HCPCS: 99284; 49465; 74177; 80053; 83605; 83690; 85025; Q9967

== ENCOUNTER 2024-05-18 12:09 | Emergency (ER) | payer MEDICARE, MEDICAID, SELFPAY ==
[2024-05-18 12:12] VITALS: BP 143/77
--- NOTE | 2024-05-18 12:28 | ED.GENMED ---
History of Present Illness
General
Chief Complaint: Catheter/Tube Problem
Source: patient
Exam Limitations: other (aphasia from cva)
Time Seen by Provider: 05/18/24 12:17
Nursing documentation reviewed up to this point in time: agreed with
History of Present Illness
History of Present Illness:
Patient presents to ED from [facility] secondary to PEG tube dislodgment. Upon arrival, patient arrives with dislodged ET tube in a bag, with balloon deflated. Patient offers no additional information at this time.
Past History
Past History
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
ED Past Surgical History: None
Social History
Tobacco: Non-smoker
Alcohol: None
Employment: Retired
Family History
Family History: Other (Reviewed and noncontributory)
Review of Systems
Review of Systems
Allergies reviewed?: Yes
Unable to obtain full review of systems at this time due to: non-verbal
All Other Systems: Not applicable
Phy Exam
Physical Exam
Physical Exam:
Physical Exam
General: no apparent distress, not acutely ill. afebrile
Head: nc/at.
Neck: supple. normal range of motion
Abdomen: normal bowel sounds. mildly distended without tenderness. g-tube site noted over midabdomen, with mild erythema.
Neuro: alert and oriented. no focal neurological deficits
Skin: no rash
Extremities: no edema.
Course
Orders/Labs/Results
Orders:
Orders
05/18/24 12:27
Tube Check [CR Cont Inj Eval Tube(by Rad)] Urgent
Comment:
Reason For Exam: g-tube placement
Vital Signs
Initial and Last Documented VS:
Initial Vital Signs
Temp Pulse Resp BP Pulse Ox
98.4 F 80 16 143/77 98
05/18/24 12:12 05/18/24 12:12 05/18/24 12:12 05/18/24 12:12 05/18/24 12:12
Last Documented Vital Signs
Temp Pulse Resp BP Pulse Ox
98.4 F 80 16 143/77 98
05/18/24 12:12 05/18/24 12:12 05/18/24 12:12 05/18/24 12:12 05/18/24 12:12
Procedures
Other
Indication for procedure:: Gastric tube replacement
Procedure completed by: Sarthak Aguirre M.D.
If no, reason: No parent/guardian avail.
Additional Procedure:
Q-tip initially used to verify existing tract. 20 Fr gastric tube replaced without any difficulty. Placement confirmed via x-ray.
MDM/Problems Addressed
MDM/Problems Addressed:
Gastric tube replaced excessively, confirmed by x-ray. Patient will be discharged back to [facility] for continual care.
*Critical Care Note
Total Time (30-74mins, 75-104mins- exclusive of procedures): Not Applicable
ED Attending Note
-
Portions of this chart may have been created with voice recognition software.� Occasional wrong word or��sound alike� substitutions may have occurred due to the inherent limitations of voice recognition software.
Discharge Plan
Departure
Patient Disposition: [facility]/SNF
Date of Disposition: 05/18/24
Time of Disposition: 13:15
Patient with high blood pressure during this ER visit?: Yes
Discharge Problem:
GASTRIC TUBES PLACEMENT
Instructions: How to Care for Your Gastrostomy Tube
Prescriptions:
No Action
olmesartan 20 mg Tablet
20 mg feeding tube DAILY@1300 Qty: 0 0RF
cyanocobalamin (vitamin B-12) 1,000 mcg Tablet
1,000 mcg feeding tube DAILY Qty: 0 0RF
magnesium hydroxide [Milk of Magnesia] 400 mg/5 mL Suspension
30 ml PO HSPRN PRN (Reason: CONSTIPATION)
acetaminophen 160 mg/5 mL Elixir
640 mg feeding tube Q4HPRN PRN (Reason: MILD PAIN, FEVER>100.4)
docusate sodium 50 mg/5 mL liquid
100 mg feeding tube BID
atorvastatin 80 mg tablet
80 mg feeding tube QPM
clopidogrel 75 mg tablet
75 mg feeding tube DAILY
sennosides [senna] 8.8 mg/5 mL syrup
17.6 mg feeding tube BID
spironolactone 25 mg tablet
25 mg feeding tube DAILY
bisacodyl 10 mg suppository
10 mg [place] DAILYPRN PRN (Reason: q 3 days when no BM & MOM/Lactulose is ineffective)
carvedilol [Coreg] 12.5 mg Tablet
12.5 mg feeding tube BID
lidocaine 4 % Adhesive Patch,Medicated
1 patch TOPICAL DAILY@0600
Chloraseptic Aerosol,[place]
1 spray PO Q2HPRN PRN (Reason: sore throat)
trazodone 100 mg Tablet
100 mg feeding tube HS
metformin 1,000 mg Tablet
1,000 mg feeding tube BID
aspirin 81 mg Tablet,Chewable
81 mg feeding tube DAILY
escitalopram oxalate [Lexapro] 20 mg Tablet
20 mg feeding tube QPM
insulin glargine [Lantus Solostar U-100 Insulin] 100 unit/mL (3 mL) Insulin Pen
29 unit SC HS
diclofenac sodium [Voltaren] 1 % Gel
2 g TOPICAL Q8H
diclofenac sodium [Voltaren] 1 % Gel
2 g TOPICAL BID
diclofenac sodium [Voltaren] 1 % Gel
2 g TOPICAL DAILYPRN PRN (Reason: lower back, when lidocaine not one)
cholecalciferol (vitamin D3) 1,250 mcg (50,000 unit) Tablet
1,250 mcg feeding tube QMONTH
Rx Instructions:
every 3rd sunnesday of each month
baclofen 5 mg Tablet
2.5 mg feeding tube DAILY
baclofen 5 mg Tablet
5 mg feeding tube HS
insulin aspart U-100 [Novolog FlexPen U-100 Insulin] 100 unit/mL (3 mL) insulin pen
0 - 10 sliding scale dose SC ACHS
Patient Comments:
0-200=0 units, 201-250=2units, 251-300=4 units, 301-350=6 units, 351-400=8 units, >400=10 units call MD
Referrals:
Aleksander Vasquez DO [Family Provider] -
Activity Restrictions/Additional Instructions:
As discussed, you will be discharged back to [facility] for continual care.
Interventions
Interventions:
*Risk Screen - Suicide Last Done: 05/18/24 12:12
*General Assessment Last Done: 05/18/24 12:12
*Neglect/Abuse Screening Last Done: 05/18/24 12:12
*Nursing Disposition Last Done: 05/18/24 15:08
YD-Nucyzu-Cdlqzcevxo Assessment Last Done: 05/18/24 12:41
Discharge Date and Time
Discharge Date/Time: 05/18/24 15:09
Print Language: GERMAN
== END 2024-05-18 15:09 ==
LOC: EMR 12:09
PROVIDERS: EMERGENCY PHYSICIAN Emergency Medicine; FAMILY PHYSICIAN Student in an Organized Health Care Education/Training Program
DX: Z46.59 Encounter for fitting and adjustment of other gastrointestinal appliance and device (principal); I10 Essential (primary) hypertension; E78.00 Pure hypercholesterolemia, unspecified; E11.9 Type 2 diabetes mellitus without complications; R47.01 Aphasia; Z86.73 Personal history of transient ischemic attack (TIA), and cerebral infarction without residual deficits
CPT/HCPCS: 99283; 43762; 49465

== ENCOUNTER → 2024-07-23 11:07 | Outpatient (REF) | payer MEDICARE, OTHER, SELFPAY ==
[2024-07-23 12:29] LABS: % Basophils 0.4 % (0-2); % Eosinophils 3.4 % (0-6); % Immature Granulocytes 0.3 % (0-0.5); % Lymphocytes 21.8 % (20.5-51.1); % Monocytes 8.1 % (1.7-9.3); Absolute Eosinophils 0.3 10^3/uL (0-0.7); Absolute Lymphocytes 1.7 10^3/uL (1.2-3.4); Absolute Monocytes 0.6 10^3/uL (0.1-0.6); Absolute Neutrophils 5.2 10^3/uL (1.4-6.5); Hematocrit 31.2 % (39.0-52.0); Hemoglobin 10.4 g/dL (13.0-18.0); Mean Corp Hgb Conc. 33.3 g/dL (33.0-37.0); Mean Corpuscular Hgb 29.1 pg (27.0-31.0); Mean Corpuscular Volume 87.4 fL (80.0-94.0); Mean Platelet Volume 10.9 fL (7.4-10.4); Nucleated Red Blood Cells % 0 % (-); Platelet Count 235 10^3/uL (130-400); Red Blood Cell Count 3.57 10^6/uL (4.70-6.10); Red Cell Dist. Width 13.7 % (11.5-14.5); White Blood Cell Count 7.9 10^3/uL (4.8-10.8)
[2024-07-23 12:37] LABS: ALT (SGPT) 45 U/L (0-50); AST (SGOT) 30 U/L (17-59); Albumin 3.9 g/dl (3.5-5.0); Alkaline Phosphatase 55 U/L (38-126); Blood Urea Nitrogen 30 mg/dl (9-20); Calcium 9.4 mg/dl (8.4-10.2); Carbon Dioxide 26 mmol/L (22-30); Chloride 95 mmol/L (98-107); Glucose 223 mg/dl (70-99); HDL Cholesterol 30 mg/dl; LDL Cholesterol, Calculated 13 mg/dl; Potassium 4.8 mmol/L (3.5-5.1); Sodium 134 mmol/L (135-145); Total Bilirubin 0.6 mg/dl (0.2-1.3); Total Cholesterol 85 mg/dl (50-199); Total Protein 6.4 g/dl (6.3-8.2); Triglyceride 214 mg/dl (10-149); Very Low Density Lipoprotein 42 mg/dl (0-30); eGFR > 60.00
[2024-07-23 14:08] LABS: Glycohemoglobin (HgbA1c) 7.7 % (4.0-5.6)
== END ==
LOC: OLABN 11:07
PROVIDERS: ATTENDING PHYSICIAN Student in an Organized Health Care Education/Training Program
DX: R78.5 Finding of other psychotropic drug in blood (principal); I69.30 Unspecified sequelae of cerebral infarction; E11.9 Type 2 diabetes mellitus without complications
CPT/HCPCS: 36415; 80053; 80061; 83036; 85025

== ENCOUNTER → 2025-01-21 10:56 | Outpatient (REF) | payer MEDICARE, OTHER, SELFPAY ==
[2025-01-21 12:14] LABS: % Basophils 0.6 % (0-2); % Eosinophils 9.3 % (0-6); % Immature Granulocytes 0.5 % (0-0.5); % Lymphocytes 20.3 % (20.5-51.1); % Monocytes 8.8 % (1.7-9.3); % Neutrophils 60.5 % (42.2-75.2); Absolute Basophils 0.1 10^3/uL (0-0.2); Absolute Eosinophils 0.8 10^3/uL (0-0.7); Absolute Lymphocytes 1.8 10^3/uL (1.2-3.4); Absolute Monocytes 0.8 10^3/uL (0.1-0.6); Absolute Neutrophils 5.3 10^3/uL (1.4-6.5); Hematocrit 31.6 % (39.0-52.0); Hemoglobin 10.2 g/dL (13.0-18.0); Mean Corp Hgb Conc. 32.3 g/dL (33.0-37.0); Mean Corpuscular Hgb 28.9 pg (27.0-31.0); Mean Corpuscular Volume 89.5 fL (80.0-94.0); Mean Platelet Volume 11.3 fL (7.4-10.4); Nucleated Red Blood Cells % 0 % (-); Platelet Count 246 10^3/uL (130-400); Red Blood Cell Count 3.53 10^6/uL (4.70-6.10); Red Cell Dist. Width 15.2 % (11.5-14.5); White Blood Cell Count 8.7 10^3/uL (4.8-10.8)
[2025-01-21 12:21] LABS: ALT (SGPT) 30 U/L (0-50); AST (SGOT) 24 U/L (17-59); Albumin 3.9 g/dl (3.5-5.0); Alkaline Phosphatase 64 U/L (38-126); Blood Urea Nitrogen 48 mg/dl (9-20); Calcium 9.3 mg/dl (8.4-10.2); Carbon Dioxide 25 mmol/L (22-30); Chloride 96 mmol/L (98-107); Glucose 317 mg/dl (70-99); HDL Cholesterol 22 mg/dl; LDL Cholesterol, Calculated 10 mg/dl; Potassium 5.3 mmol/L (3.5-5.1); Sodium 133 mmol/L (135-145); Total Bilirubin 0.9 mg/dl (0.2-1.3); Total Cholesterol 87 mg/dl (50-199); Total Protein 6.4 g/dl (6.3-8.2); Triglyceride 278 mg/dl (10-149); Very Low Density Lipoprotein 55 mg/dl (0-30); eGFR > 60.00
[2025-01-21 13:08] LABS: Glycohemoglobin (HgbA1c) 9.7 % (4.0-5.6)
== END ==
LOC: OLABN 10:56
PROVIDERS: ATTENDING PHYSICIAN Student in an Organized Health Care Education/Training Program
DX: R78.5 Finding of other psychotropic drug in blood (principal); I69.30 Unspecified sequelae of cerebral infarction; Z79.899 Other long term (current) drug therapy
CPT/HCPCS: 36415; 80053; 80061; 83036; 85025

== ENCOUNTER → 2025-01-26 10:06 | Outpatient (REF) | payer MEDICARE, OTHER, SELFPAY ==
[2025-01-26 10:51] LABS: ALT (SGPT) 27 U/L (0-50); AST (SGOT) 22 U/L (17-59); Albumin 3.7 g/dl (3.5-5.0); Alkaline Phosphatase 61 U/L (38-126); Blood Urea Nitrogen 34 mg/dl (9-20); Calcium 9.5 mg/dl (8.4-10.2); Carbon Dioxide 29 mmol/L (22-30); Chloride 97 mmol/L (98-107); Glucose 292 mg/dl (70-99); Potassium 4.8 mmol/L (3.5-5.1); Sodium 135 mmol/L (135-145); Total Bilirubin 0.7 mg/dl (0.2-1.3); Total Protein 6.4 g/dl (6.3-8.2); eGFR > 60.00
== END ==
LOC: OLABN 10:06
PROVIDERS: ATTENDING PHYSICIAN Student in an Organized Health Care Education/Training Program
DX: E87.6 Hypokalemia (principal)
CPT/HCPCS: 36415; 80053

== ENCOUNTER → 2025-05-28 11:49 | Outpatient (REF) | payer MEDICARE, OTHER, SELFPAY ==
[2025-05-28 12:16] LABS: Blood Urea Nitrogen 33 mg/dl (9-20); Calcium 9.3 mg/dl (8.4-10.2); Carbon Dioxide 29 mmol/L (22-30); Chloride 95 mmol/L (98-107); Glucose 286 mg/dl (70-99); HDL Cholesterol 24 mg/dl; LDL Cholesterol, Calculated 8 mg/dl; Potassium 4.8 mmol/L (3.5-5.1); Sodium 133 mmol/L (135-145); Very Low Density Lipoprotein 48 mg/dl (0-30); eGFR > 60.00
== END ==
LOC: OLABN 11:49
PROVIDERS: ATTENDING PHYSICIAN Student in an Organized Health Care Education/Training Program
DX: R78.5 Finding of other psychotropic drug in blood (principal); I69.30 Unspecified sequelae of cerebral infarction
CPT/HCPCS: 36415; 80048; 80061

== ENCOUNTER 2025-06-09 02:59 | Inpatient (IN) | payer MEDICARE, OTHER, SELFPAY ==
[2025-06-09] VITALS (49 sets, daily range): BP systolic 75–149; BP diastolic 43–84
--- NOTE | 2025-06-09 00:40 | EDRN ---
After 500cc bolus patient's BP is 79/45, Dr. Aguirre aware, 250cc bolus ordered to be given at this time.
[2025-06-09] MEDS: NSS 500 IV (00:43)
[2025-06-09] MEDS: NSS 250 IV (00:46)
[2025-06-09 00:47] LABS: Hematocrit 23.8 % (39.0-52.0); Hemoglobin 7.9 g/dL (13.0-18.0); Mean Corp Hgb Conc. 33.2 g/dL (33.0-37.0); Mean Corpuscular Volume 88.1 fL (80.0-94.0); Nucleated Red Blood Cells % 0 % (-); Platelet Count 207 10^3/uL (130-400); Red Cell Dist. Width 14.2 % (11.5-14.5)
[2025-06-09] MEDS: PROTONIX 100 IV ×3 (00:52→20:53)
[2025-06-09] MEDS: PROTONIX IV 80 MG IV (00:53)
[2025-06-09 00:56] LABS: APTT 24.5 Sec (23.4-35.0); INR 1.22; PT 15.7 Sec (11.4-14.6)
--- NOTE | 2025-06-09 01:00 | EDRN ---
Dr. Aguirre is wanting blood within the next 30 min. spoke with bloodbank they are running type and screen and ABO 2, states should be done in aprox. [address] Aguirre who is fine with that time frame, Dr. Aguirre on the phone with family getting
consent to give blood as well, verbal consent on the phone signed and scanned into charge.
[2025-06-09 01:08] LABS: ALT (SGPT) 19 U/L (0-50); AST (SGOT) 18 U/L (17-59); Albumin 3.3 g/dl (3.5-5.0); Alkaline Phosphatase 43 U/L (38-126); Blood Urea Nitrogen 89 mg/dl (9-20); Calcium 8.8 mg/dl (8.4-10.2); Carbon Dioxide 20 mmol/L (22-30); Chloride 100 mmol/L (98-107); Glucose 340 mg/dl (70-99); Potassium 6.9 mmol/L (3.5-5.1); Sodium 132 mmol/L (135-145); Total Protein 5.6 g/dl (6.3-8.2); eGFR 50.49
--- NOTE | 2025-06-09 01:31 | EDRN ---
Spoke with Dr. Aguirre, he is aware blood is ready, he would like the first unit to be placed on a pressure bag, if the blood pressure is still below 90 systolic, he would like the 2nd unit to go in quickly as well, if pressure is above 90s systolic,
then normal blood protocol standards may be followed.
--- NOTE | 2025-06-09 01:31 | ED.GENMED ---
History of Present Illness
General
Chief Complaint: Blood Pressure Problem
Source: patient, family, ambulance crew and [facility]
Exam Limitations: altered mental status
Time Seen by Provider: 06/09/25 00:20
Nursing documentation reviewed up to this point in time: agreed with
History of Present Illness
History of Present Illness:
Patient with history of CVA on aspirin and Plavix, presents to ED from [facility] secondary to rectal bleeding along with dark material noted within his G-tube this evening. Upon arrival, patient is somnolent but arousable to voice, but does not
offer any additional information. Patient is hypotensive upon arrival, requiring IV fluid administration.
Past History
Past History
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
ED Past Surgical History: None
Social History
Tobacco: Non-smoker
Alcohol: None
Employment: Retired
Family History
Family History: Other (Reviewed and noncontributory)
Review of Systems
Review of Systems
Allergies reviewed?: Yes
Unable to obtain full review of systems at this time due to: due to acuity
All Other Systems: Not applicable
Phy Exam
Physical Exam
Physical Exam:
Physical Exam
General: mil distress, acutely ill. afebrile. hypotensive
Head: nc/at.
Neck: supple. no jvd.
Heart: s1/s2 regular rate and rhythm
Lungs: no acute respiratory distress. clear bilaterally
Abdomen: normal bowel sounds. not tender. G-tube in place
Neuro: somnolent but arousable. does not follow commands.
Skin: no rash
Extremities: no edema
Course
Orders/Labs/Results
Orders:
Orders
06/09/25 00:15
Cardiac Monitoring- Treatment ONCE
IV Insert/Care/Rem.- Treatment PRN
O2 Therapy [RESP] Urgent
Titrate/Wean O2 to maintain O2 sat greater than (%): 93
Special Instructions: MAINTAIN CONTINOUS O2 SATS > OR = 93%
Pulse Ox/spot Check [RESP] Urgent
Quantity: 1
Special Instructions: ON ROOM AIR
06/09/25 00:19
Type+Screen Urgent
Complete Blood Count/With Diff Urgent
Comprehensive Metabolic Panel Urgent
PTT Urgent
Prothrombin Time Urgent
06/09/25 00:32
CT Head W/o Iv Contrast Urgent
Comment:
Reason For Exam: mental status change
0.9% Sodium Chloride 500 ml [Nss] 500 ml IV BOLUS
06/09/25 00:44
IV Insert/Care/Rem.- Treatment PRN
0.9% Sodium Chloride 250 ml [Nss] 250 ml IV BOLUS
Pantoprazole 80 mg/100 ml Nss [Protonix] 80 mg in 100 ml IV NOW
Pantoprazole [Protonix IV] 80 mg IV NOW STA
06/09/25 00:56
* Blood Bank Products Urgent
Blood Bank Products: *Packed RBC Leuko(PRBC's)
Quantity: 2
Transfuse Today: Yes
Reason: Bleeding
IV Insert/Care/Rem.- Treatment PRN
06/09/25 01:10
Electrocardiogram (*1) Urgent
Reason for Study: Other
Other Reason for Exam: hyperkalemia
EKG- Treatment ONCE
06/09/25 01:21
Calcium Gluconate 1,000 mg IV NOW STA
Sodium Bicarbonate 50 meq IV NOW STA
06/09/25 01:25
Insulin Human Regular [Novolin R] 10 units IV NOW STA
06/09/25 02:29
Admit/Transfer Patient As Directed
Co-Sign Provider:
Level of Care: Inpatient admission
Assign to:: IMU- Intermediate Care
Physician / Group: Agustín
Diagnosis: GI Bleed, Acute Blood Loss Anemia, Hyperkalemia, PINKY
Reason for Hospitalization: GI Bleed, Acute Blood Loss Anemia, Hyperkalemia, PINKY
Expected length of stay greater than two midnights?: Yes
ELOS- Estimated Length of Stay in days: 3
I certify the patient meets the requirements for IP care: Yes
PRN Pain Medication Management As Directed
May give lesser potent ordered pain med per pt: Yes
preference::
Protocol:: Medication orders for pain may be administered in a
manner that supports deferring to patient preference
when the pt is:
- Requesting an ordered lesser potent pain medication.
Least to most potent pain medications are defined
as: acetaminophen < NSAID < tramadol < opioids
(morphine, oxycodone, hydromorphone).
- Requesting a lesser dose of the same medication IF
ORDERED.
- Requesting a less intrusive route of administration
if both routes are prescribed by the provider (PO <
IV).
06/09/25 02:30
Code Status As Directed
Resuscitation Status: Do not resuscitate
Reached after discussion with pt or family/Healthcare POA: Yes
06/09/25 02:31
DNR Bracelet Application ONCE
06/09/25 02:51
El Catheter [Catheter- Indwelling] As Directed
Reason for insertion: Acute Kidney Injury
Discontinue Date/Time: 06/12/25 0600
06/09/25 03:29
0.9% Sodium Chloride 1000 ml [Nss] 1,000 ml IV 125 mls/hr
Dextrose 50%-Water [Dextrose 50% Syringe] 12.5 grams IV [id number] PRN
Glucagon [GlucaGen] 1 mg IM PRN PRN
Ondansetron Injectable [Zofran] 4 mg IV Q6HPRN PRN
06/09/25 03:29
Consult Notification Routine
Specialty to Notify: Gastroenterology
Date consulting provider notified: 06/09/25
Time consulting provider notified: 08:09
Notified:: Provider
GASTROINTESTINAL CONSULT Routine
Consulting Provider: Doreen Sosa
Was physician already notified: No
Reason for consult: GI Bleeding
Activity As Directed
Activity Level: Bedrest
Bedside Glucose Monitoring As Directed
Frequency: AC&HS
Additional Instructions:: Change to q6h if pt on TPN, tube feeding or not eating
EKG with chest pain [ECG as needed] As Directed
ECG as needed for:: Chest Pain
Gastrointestinal Tubes As Directed
Type: Gastrostomy
To suction?: No
To straight drainage/gravity?: Yes
Irrigate tube?: Yes
Irrigant: Tap Water
Frequency: Q4H
Amount in mls: 30
Irrigation Directions: Irrigate Q4H and PRN
I/O [Intake/ Output] As Directed
Frequency: Per unit guidelines
Intake/ Output As Directed
Frequency: Per unit guidelines
Comment: strict intake and output monitoring
Pneumatic Compression Sleeves As Directed
Type: Knee high
Vital Signs As Directed
Frequency: Per unit guidelines
Weight As Directed
Frequency: Daily
Weight As Directed
Frequency: Daily
Oxygen Therapy [O2 Therapy] [RESP] Routine
Titrate/Wean O2 to maintain O2 sat greater than (%): 94
DX Deep Vein Thrombosis Video Routine
06/09/25 05:27
Basic Metabolic Panel IN AM
Prothrombin Time IN AM
06/09/25 Breakfast
NPO
Allow oral meds: Yes
Allow clear liquids: Sips of Clears
Complete Blood Count/No Diff IN AM
Glycohemoglobin (HgbA1c) IN AM
06/09/25 07:30
Insulin Aspart Corrective Low [Novolog Flexpen-Low Resistance] See Protocol SC AC
06/09/25 11:00
Pantoprazole 80 mg/100 ml Nss [Protonix] 80 mg in 100 ml IV Q10H
06/09/25 17:30
HH [H&H] Q6H
06/09/25 21:29
HH [H&H] Q6H
Abnormal Lab Results
06/09/25 06/09/25
00:19 02:11
WBC 14.5 H 10^3/uL
(4.8-10.8)
RBC 2.70 L 10^6/uL
(4.70-6.10)
Hgb 7.9 L g/dL
(13.0-18.0)
Hct 23.8 L %
(39.0-52.0)
MPV 11.8 H fL
(7.4-10.4)
Abs Immat Gran (auto) 0.1 H 10^3/uL
(0-0.05)
Absolute Neuts (auto) 11.6 H 10^3/uL
(1.4-6.5)
Absolute Monos (auto) 0.9 H 10^3/uL
(0.1-0.6)
Neutrophils % 80.4 H %
(42.2-75.2)
Lymphocytes % 12.6 L %
(20.5-51.1)
PT 15.7 H Sec
(11.4-14.6)
Sodium 132 L mmol/L
(135-145)
Potassium 6.9 H* mmol/L
(3.5-5.1)
Carbon Dioxide 20 L mmol/L
(22-30)
BUN 89 H mg/dl
(9-20)
Creatinine 1.4 H mg/dL
(0.7-1.3)
Glucose 340 H mg/dl
(70-99)
Total Protein 5.6 L g/dl
(6.3-8.2)
Albumin 3.3 L g/dl
(3.5-5.0)
POC Glucose 317 H mg/dl
(70-99)
Crossmatch IS Only See Detail
06/09/25 00:19
06/09/25 00:19
Vital Signs
Initial and Last Documented VS:
Initial Vital Signs
Pulse Resp BP Pulse Ox
84 20 77/45 98
06/09/25 00:06 06/09/25 00:06 06/09/25 00:06 06/09/25 00:06
Last Documented Vital Signs
Temp Pulse Resp BP Pulse Ox
98.3 F 83 10 149/84 97
06/09/25 12:55 06/09/25 18:00 06/09/25 18:00 06/09/25 18:00 06/09/25 18:00
MDM/Problems Addressed
MDM/Problems Addressed:
DNR/DNI noted on transfer chart.
Stool: dark brown stool, grossly heme positive
Discussed with patient's daughter (DONNIE SAMS) via phone - confirmed DNR/DNI. Agreeable to initial blood transfusion but will discuss with her brother (KINJAL) regarding further treatments.
Blood transfusion consent on the chart
*Pulse Oximetry
SaO2: 99
Oxygen Mode of Delivery: Room air
Patient hypoxic: no
*Critical Care Note
Total Time (30-74mins, 75-104mins- exclusive of procedures): 30 min
ED Attending Note
-
Portions of this chart may have been created with voice recognition software.� Occasional wrong word or��sound alike� substitutions may have occurred due to the inherent limitations of voice recognition software.
Discharge Plan
Departure
Patient Disposition: Admit
Date of Disposition: 06/09/25
Time of Disposition: 01:43
Admit to: Telemetry
Presentation/result/management discussed w/ accepting MD/DO: Hospitalist
Discharge Problem:
GI bleed, Hyperkalemia, Hypotension
Interventions
Interventions:
*Risk Screen - Suicide Last Done: 06/09/25 03:58
*General Assessment Last Done: 06/09/25 00:06
*Neglect/Abuse Screening Last Done: 06/09/25 00:06
*ED- Fall Risk Assessment Last Done: 06/09/25 00:29
*ED COVID-19 Vaccine History Last Done: 06/09/25 00:29
*Nursing Disposition Last Done: 06/09/25 03:50
ED- Cardiac Assessment Last Done: 06/09/25 00:06
ED- Neurological Assessment Last Done: 06/09/25 00:06
ED- Pulmonary Assessment Last Done: 06/09/25 00:26
Discharge Date and Time
Discharge Date/Time: 06/09/25 04:05
[2025-06-09] MEDS: NOVOLIN R 10 UNITS IV (01:38)
[2025-06-09] MEDS: SODIUM BICARBONATE 50 MEQ IV (01:38)
[2025-06-09] MEDS: CALCIUM GLUCONATE 1000 MG IV (01:38)
--- NOTE | 2025-06-09 02:09 | EDRN ---
Patient finished their first unit of blood, second unit sent up, in between 1st unit and waiting for second this RN took patient over to CT.
[2025-06-09 02:13] LABS: Glucose - Point of Care 317 mg/dl (70-99)
--- NOTE | 2025-06-09 02:15 | EDRN ---
Dr. Aguirre updated on patient's recent BP, 2nd unit of blood is hanging, will continue to monitor patient.
--- NOTE | 2025-06-09 02:33 | HPS.HSE ---
Family Physician
-
Family Physician: Aleksander Vasquez DO
Chief Complaint
-
Tube Problem
History of Present Illness
Patient is an 80y M with PMH significant for brain stem CVA with resultant dysphagia, PEG placement and dementia who [place] ED from [place] for evaluation of pink-tinged drainage from around PEG site. Patient reportedly with brown stool at
[place]. No other significant bleeding evident. Upon arrival to the ED, patient was noted to be covered in gelatinous, maroon colored stool. He had pedro blood within the G-tube with pink discharge around tubing. Patient was hypotensive upon arrival
requiring IVF resuscitation.
At the time of my examination, patient is awake and responsive. He answers Y/N questions. He denies any pain or dyspnea at present.
Medical History
Past Medical History
Past Medical History: Reports Other
Additional Past Medical History:
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
Chronic Dysphagia secondary to the above
Basilar artery stenosis
Hypertension
BPH
DM-II
GERD / Gastric ulcers
Chronic ambulatory dysfunction
Dementia
Past Surgical History: Reports Other
Additional Past Surgical History:
Vasectomy
PEG Placement
Social History
Tobacco: Non-smoker
Alcohol: None
Drug: None
Living: Residential
Family History
Family History: Not pertinent
Allergies / Home Medications
Allergies reflects when Allergies were last updated in [facility].
Home Medications with original date entered in [facility]
Allergy/Medication List:
Allergies
Allergy/AdvReac Type Severity Reaction Status Date / Time
No Known Allergies Allergy Verified 05/18/24 12:17
Home Medications
cyanocobalamin (vitamin B-12) 1,000 mcg tablet 1,000 mcg feeding tube DAILY Supplement #0 tabs 09/11/22
olmesartan 20 mg tablet 20 mg feeding tube DAILY@1300 #0 tabs 09/11/22
acetaminophen 160 mg/5 mL oral elixir 640 mg feeding tube Q4HPRN PRN MILD PAIN, FEVER>100.4 09/29/22
atorvastatin 80 mg tablet 80 mg feeding tube QPM High cholesterol 09/29/22
bisacodyl 10 mg rectal suppository 10 mg [place] DAILYPRN PRN q 3 days when no BM & MOM/Lactulose is ineffective 09/29/22
clopidogrel 75 mg tablet 75 mg feeding tube DAILY Stroke 09/29/22
docusate sodium 50 mg/5 mL oral liquid 100 mg feeding tube BID Constipation 09/29/22
magnesium hydroxide 400 mg/5 mL oral suspension (Milk of Magnesia) 30 ml PO HSPRN PRN CONSTIPATION 09/29/22
sennosides 8.8 mg/5 mL oral syrup (senna) 17.6 mg feeding tube BID Constipation 09/29/22
spironolactone 25 mg tablet 25 mg feeding tube DAILY Blood pressure 09/29/22
aspirin 81 mg chewable tablet 81 mg feeding tube DAILY 11/01/23
baclofen 5 mg tablet 2.5 mg feeding tube DAILY 11/01/23
baclofen 5 mg tablet 5 mg feeding tube HS 11/01/23
carvedilol 12.5 mg tablet (Coreg) 12.5 mg feeding tube BID 11/01/23
cholecalciferol (vitamin D3) 1,250 mcg (50,000 unit) tablet 1,250 mcg feeding tube QMONTH 11/01/23
diclofenac sodium 1 % topical gel 2 g topical BID right shoulder 11/01/23
diclofenac sodium 1 % topical gel 2 g topical DAILYPRN PRN lower back, when lidocaine not one 11/01/23
diclofenac sodium 1 % topical gel 2 g topical Q8H b/l cervical, neck 11/01/23
escitalopram oxalate 20 mg tablet (Lexapro) 20 mg feeding tube QPM 11/01/23
insulin aspart U-100 100 unit/mL (3 mL) subcutaneous pen (Novolog FlexPen U-100 Insulin aspart) 0 - 10 sliding scale dose SC ACHS 11/01/23
insulin glargine 100 unit/mL (3 mL) subcutaneous pen (Lantus Solostar U-100 Insulin) 31 unit SC HS 11/01/23
lidocaine 4 % topical patch 1 patch topical DAILY@0600 lower back 11/01/23
metformin 1,000 mg tablet 1,000 mg feeding tube BID 11/01/23
phenol-phenolate sodium mucosal aerosol spray 1 spray PO Q2HPRN PRN sore throat 11/01/23
trazodone 100 mg tablet 100 mg feeding tube HS 11/01/23
ciclopirox See Rx Instructions .Route .COMPLEX 06/09/25
glucagon HCl 1 mg solution for injection (Glucagon (HCl) Emergency Kit) 1 mg BID PRN Hypoglycemia 06/09/25
guaifenesin 10 ml feeding tube Q6H PRN Cough/congestion 06/09/25
Review of Systems
-
Unable to obtain full review of systems at this time due to: Dementia
History Source: Patient
Respiratory: Denies Cough or Trouble Breathing
Cardiac: Denies Chest Pain
Abdomen/GI: Denies Abdominal Pain or Nausea
Physical Exam
Vital Signs
Vital Signs
Temp Pulse Resp BP Pulse Ox
97.6 F 83 13 97/55 100
06/09/25 02:22 06/09/25 02:28 06/09/25 02:28 06/09/25 02:28 06/09/25 02:22
Physical Exam
General: Other (Slightly pale appearing 80y M in no acute distress. Chronically ill-appearing.)
HEENT: Other (Dry MM. Neck supple.)
Respiratory: Other (Decreased at bases - otherwise clear.)
Cardiac: S1/S2 and Regular Rhythm; No Murmur
GI: Other (Softly distended. Pos BS. No focal tenderness. G-tube site with pink tinged gauze pads. Bumper appears pulled away from skin surface. No active bleeding appreciated.)
Musculoskeletal: No Clubbing, No Cyanosis and No Edema
Neuro: Awake, Alert and Other (LE weakness / muscle wasting.)
Laboratory Results
-
06/09/25 00:19
06/09/25 00:19
Laboratory Results
PT 15.7 Sec (11.4-14.6) H 06/09/25 00:19
INR 1.22 06/09/25 00:19
APTT 24.5 Sec (23.4-35.0) 06/09/25 00:19
Total Bilirubin 0.9 mg/dl (0.2-1.3) 06/09/25 00:19
AST 18 U/L (17-59) 06/09/25 00:19
ALT 19 U/L (0-50) 06/09/25 00:19
Alkaline Phosphatase 43 U/L (38-126) 06/09/25 00:19
Impression/Plan
-
A/P: Patient is an 80y M with PMH significant for brainstem CVA, dementia, GERD and polyneuropathy who presents to ED from local [place] for evaluation of GI bleeding.
Acute GI Bleeding
Acute Blood Loss Anemia secondary to the above
Hypotension secondary to the above
GERD / Esophagitis / Gastric Ulcers
- Admit to IMU for further evaluation and treatment.
- Initial Hgb = 7.9 compared to baseline around 10-11.
- 2 units PRBC ordered / transfusing in the ED.
- Two large bore IVs, IVF / NSS support as well given hypotension / volume losses.
- Nothing via PEG tube. Consider IR eval / tube study in AM.
- IV PPI infusion.
- GI consulted for additional recommendations / possible endoscopic exam.
- Follow serial H&H and provide additional blood products if needed.
- Hold ASA, Plavix.
Hyperkalemia
PINKY
- SCr = 1.4 compared to prior baseline of 0.8.
- K = 6.9 without evident EKG changes.
- Temporizing agents given in the ED.
- IVF support / resuscitation as noted above.
- Place El.
- Follow for improvement in K and renal function with volume replacement.
- Hold ARB and Aldactone.
ASCVD
Benign Hypertension
- Prior CVA with severe residual disability. Bed-bound, PEG-dependent, etc.
- Holding all enteral meds acutely as noted above.
DM-II
- Hyperglycemia on initial labs.
- Continue basal insulin but at decreased dose while tube feeds on hold.
- Follow glucose and cover with SSI as needed.
- Update A1C.
BPH
- El placed as noted above.
Senile Dementia
- Trazodone held acutely as noted above.
DVT Prophylaxis: SCDs
Code Status: DNR
--- NOTE | 2025-06-09 03:09 | EDRN ---
Patient had a medium amount of dark loose stool, patient was cleaned up and pulled up him up in bed.
[2025-06-09] MEDS: NSS 1000 IV ×3 (03:46→20:53)
[2025-06-09 05:53] LABS: INR 1.12; PT 14.7 Sec (11.4-14.6)
[2025-06-09 06:04] LABS: Hematocrit 30.3 % (39.0-52.0); Hemoglobin 10.0 g/dL (13.0-18.0); Mean Corp Hgb Conc. 33.0 g/dL (33.0-37.0); Mean Corpuscular Volume 85.4 fL (80.0-94.0); Platelet Count 162 10^3/uL (130-400); Red Cell Dist. Width 14.0 % (11.5-14.5)
[2025-06-09 06:13] LABS: Blood Urea Nitrogen 87 mg/dl (9-20); Calcium 8.7 mg/dl (8.4-10.2); Carbon Dioxide 23 mmol/L (22-30); Chloride 104 mmol/L (98-107); Glucose 242 mg/dl (70-99); Potassium 5.9 mmol/L (3.5-5.1); Sodium 135 mmol/L (135-145); eGFR > 60.00
--- NOTE | 2025-06-09 06:40 | CON.GI ---
Addendum entered and electronically signed by Doreen Vega Do, MD 06/09/25 10:01:
I saw and examined the patient.
The TOW BOAT CAPTAIN's note was reviewed and I agree with the note.
Comment: Hair is an 80yo M care home resident with h/o DM, HTN, CVA on plavix s/p PEG who was admitted with maroon stools with anemia Hbg 7.9. He is not verbal. He had last dose plavix 06/08. He has h/o GERD with PUD but not on PPI. Vitals
stable AF. PEG tube with minor erythema around site no drainage, lavage is dark melena. Labs reviewed WBC 15. Hbg is 7.9 to 10 after 2u PRBC transfusions. Imaging reviewed
Impression
- Melena from PEG lavage and maroon stools
ddx includes PUD, ectasia or severe gastritis
- Acute on chronic anemia
- CVA
- Chronic AC (last plavix 06/08)
- chronic PEG
- DM
- HTN
- WBC
- GERD
- Remote h/o PUD
Recommendations
- Serial H/H
- Continue to hold plavix
- 2 large bore IVs
- C/w protonix drip
- c/w NPO hold TF for now
- Anticipate EGD tomorrow. Calls made to family Morel his son is POA and now on flight till 4pm. Sister updated by me. Will obtain consent then
Above d/w hospitalist. Will follow with you
Original Note:
Consultation
-
Date/Time Consultation Requested: 06/09/25329
Date/Time Consultation Performed: 06/09/25 0830
Requesting Provider: Pino Randolph DO
Performing Provider: CHERRI Montilla, Doreen Sosa MD
Reason for Consultation: GI bleeding
Medical History
Chief Complaint / HPI
Chief Complaint: dark emesis in PEG/ maroon stools
History of Present Illness:
Pt is an 80yo with hx GERD, gastric ulcers, CVA on chronic Plavix with dysphagia and chronic peg, HTN, NIDDM, dementia, BPH, ambulatory dysfunction with onset of pink tinged drainage around peg. Per ER notes had brown stool at SNF but in ER noted
with gelatinous maroon stool.On admission hbg 7.9 with normal range 9-10 and pt transfused. Other labs with WBC 14,500, Platelets 207, Na 132, K 6.9, creat 1.4, glucose 340, normal LFT's and albumin 3.3. After admission peg with increased
pressure then placed with gravity with black thick drainage.
Pt non verbal unable to provide history.
08/2022- Kevan - grade A esophagitis, non bleeding gastric ulcers without bleeding, peg was placed
colonoscopy 15-20 years ago
Past Medical History
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
Past Surgical History: Urological (vastectomy) and Other (peg)
Social History
Tobacco: Non-Smoker (per chart )
Alcohol: None (per chart )
Drug: None (per chart )
Living: Jail
Employment: Retired
Family History
Family History: Other (per prior eval no family hx GI malignancies )
Allergies / Home Medications
Allergy/AdvReac Type Severity Reaction Status Date / Time
No Known Allergies Allergy Verified 05/18/24 12:17
�Medication �Instructions �Recorded
cyanocobalamin (vitamin B-12) 1,000 mcg feeding tube DAILY 09/11/22
1,000 mcg tablet Supplement #0 tabs
olmesartan 20 mg tablet 20 mg feeding tube DAILY@1300 #0 09/11/22
tabs
acetaminophen 160 mg/5 mL oral 640 mg feeding tube Q4HPRN PRN 09/29/22
elixir MILD PAIN, FEVER>100.4
atorvastatin 80 mg tablet 80 mg feeding tube QPM High 09/29/22
cholesterol
bisacodyl 10 mg rectal suppository 10 mg SD DAILYPRN PRN q 3 days 09/29/22
when no BM & MOM/Lactulose is
ineffective
clopidogrel 75 mg tablet 75 mg feeding tube DAILY Stroke 09/29/22
docusate sodium 50 mg/5 mL oral 100 mg feeding tube BID 09/29/22
liquid Constipation
magnesium hydroxide 400 mg/5 mL 30 ml PO HSPRN PRN CONSTIPATION 09/29/22
oral suspension (Milk of Magnesia)
sennosides 8.8 mg/5 mL oral syrup 17.6 mg feeding tube BID 09/29/22
(senna) Constipation
spironolactone 25 mg tablet 25 mg feeding tube DAILY Blood 09/29/22
pressure
aspirin 81 mg chewable tablet 81 mg feeding tube DAILY 11/01/23
baclofen 5 mg tablet 2.5 mg feeding tube DAILY 11/01/23
baclofen 5 mg tablet 5 mg feeding tube HS 11/01/23
carvedilol 12.5 mg tablet (Coreg) 12.5 mg feeding tube BID 11/01/23
cholecalciferol (vitamin D3) 1,250 1,250 mcg feeding tube QMONTH 11/01/23
mcg (50,000 unit) tablet
diclofenac sodium 1 % topical gel 2 g topical BID right shoulder 11/01/23
diclofenac sodium 1 % topical gel 2 g topical DAILYPRN PRN lower 11/01/23
back, when lidocaine not one
diclofenac sodium 1 % topical gel 2 g topical Q8H b/l cervical, neck 11/01/23
escitalopram oxalate 20 mg tablet 20 mg feeding tube QPM 11/01/23
(Lexapro)
insulin aspart U-100 100 unit/mL 0 - 10 sliding scale dose SC ACHS 11/01/23
(3 mL) subcutaneous pen (Novolog
FlexPen U-100 Insulin aspart)
insulin glargine 100 unit/mL (3 31 unit SC HS 11/01/23
mL) subcutaneous pen (Lantus
Solostar U-100 Insulin)
lidocaine 4 % topical patch 1 patch topical DAILY@0600 lower 11/01/23
back
metformin 1,000 mg tablet 1,000 mg feeding tube BID 11/01/23
phenol-phenolate sodium mucosal 1 spray PO Q2HPRN PRN sore throat 11/01/23
aerosol spray
trazodone 100 mg tablet 100 mg feeding tube HS 11/01/23
ciclopirox See Rx Instructions .Route .COMPLEX 06/09/25
glucagon HCl 1 mg solution for 1 mg BID PRN Hypoglycemia 06/09/25
injection (Glucagon (HCl)
Emergency Kit)
guaifenesin 10 ml feeding tube Q6H PRN 06/09/25
Cough/congestion
Review of Systems
-
Unable to obtain full review of systems at this time due to: Other (hx CVA and dementia non verbal in exam )
History Source: Jail and Other (nursing staff )
Constitutional: Reports No Symptoms
EENT: Reports No Symptoms
Abdomen/GI: Reports Other (dark drainage from peg into gravity bag )
Skin: Reports No Symptoms
Neurological: Reports Weakness
Hematologic/Lymphatic: Reports Bleeding
Vital Signs
Temp Pulse Resp BP Pulse Ox
98.4 F 92 13 104/66 98
06/09/25 03:46 06/09/25 06:00 06/09/25 06:00 06/09/25 04:00 06/09/25 06:00
Physical Exam
Exam
General: Other (eyes open but non verbal in exam )
HEENT: Normocephalic and Anicteric
Respiratory: Clear
Cardiac: Regular Rhythm
GI: Soft, Non Tender, Non Distended and Other (dark emesis in peg to gravity )
Musculoskeletal: No Clubbing and No Cyanosis
Skin: Warm and Dry
Neuro: Other (non verbal on exam )
Psych: Calm
Results
WBC 15.3 10^3/uL (4.8-10.8) H 06/09/25 06:00
Hgb 10.0 g/dL (13.0-18.0) L D 06/09/25 06:00
Hct 30.3 % (39.0-52.0) L 06/09/25 06:00
MCV 85.4 fL (80.0-94.0) 06/09/25 06:00
Plt Count 162 10^3/uL (130-400) D 06/09/25 06:00
Absolute Neuts (auto) 11.6 10^3/uL (1.4-6.5) H 06/09/25 00:19
PT 14.7 Sec (11.4-14.6) H 06/09/25 05:27
INR 1.12 06/09/25 05:27
APTT 24.5 Sec (23.4-35.0) 06/09/25 00:19
Sodium 135 mmol/L (135-145) 06/09/25 05:27
Potassium 5.9 mmol/L (3.5-5.1) H 06/09/25 05:27
Chloride 104 mmol/L (98-107) 06/09/25 05:27
Carbon Dioxide 23 mmol/L (22-30) 06/09/25 05:27
BUN 87 mg/dl (9-20) H 06/09/25 05:27
Creatinine 1.0 mg/dL (0.7-1.3) 06/09/25 05:27
Calcium 8.7 mg/dl (8.4-10.2) 06/09/25 05:27
Total Bilirubin 0.9 mg/dl (0.2-1.3) 06/09/25 00:19
AST 18 U/L (17-59) 06/09/25 00:19
ALT 19 U/L (0-50) 06/09/25 00:19
Alkaline Phosphatase 43 U/L (38-126) 06/09/25 00:19
Diagnostic Image Results:
06/09- HCT pending
Prior GI Procedures:
EGD: 08/2022- Carlos Eduardo - grade A esophagitis, non bleeding gastric ulcers without bleeding, peg was placed
Colonoscopy: 15-20 years ago
Assessment / Plan
-
Pt is an 80yo with hx GERD, gastric ulcers, CVA on chronic Plavix with dysphagia and chronic peg, HTN, NIDDM, dementia, BPH, ambulatory dysfunction with onset of pink tinged drainage around peg. Per ER notes had brown stool at SNF but in ER noted
with gelatinous maroon stool. On admission hbg 7.9 with normal range 9-10 and pt transfused. Other labs with WBC 14,500, Na 132, K 6.9, creat 1.4, glucose 340, normal LFT's and albumin 3.3.
Prior scopes --08/2022- Carlos Eduardo - grade A esophagitis, non bleeding gastric ulcers without bleeding, peg was placed and colonoscopy 15-20 years ago.
-GI bleed with pink tinged around peg and gelatinous maroon stool
-dark drainage from peg after admission
-anemia acute blood loss secondary to GI bleeding
-CVA on chronic Plavix
-dysphagia with chronic peg
-hx GERD
-hx prior esophagitis and gastric ulcers on EGD
other med problems:
-NIDDM
-dementia
-BPH
-ambulatory dysfunction
PLAN:
etiology of bleeding related to PUD, ulceration around peg vs other
plan for EGD will review timing with Do possible AM with some Plavix wash out
Plavix hold last dose 06/08 AM
cont Protonix gtt
NPO
cont peg to gravity and monitor outputs
trend hbg
s/p 2 units transfused given since admission
per Dr. Connelly son in [facility] and current traveling home from [place] but per SNF daughter and also assist with care
-
-
Thank you for consultation and allowing me to participate in the patient's care. Please call the conformal pad former GI physician during the after hours with any questions or concerns.
[2025-06-09 06:47] LABS: Glucose - Point of Care 259 mg/dl (70-99)
--- NOTE | 2025-06-09 07:28 | PTCARENOTE ---
Rec'd pt from ED RN. Pt nonverbal at this time. Moaning, grimacing, tearful. Upon turning pt to perform hygiene care, stopper on PEG tube became dislodged and moderate amount of dark brown coffee ground drainage leaked from tube. Hygiene care
performed again. COMPENSATION SPECIALIST contacted regarding this drainage in addition to pt discomfort and distention. Tube placed to gravity drainage per MD orders. Temp sensing silvestre in place upon transfer to this unit. SR on CM. 98% on RA. VSS. Bed alarm in place
for pt safety. Care reported to oncoming RN.
--- NOTE | 2025-06-09 09:15 | W.PN.HOSP.TC ---
Today's Communication/Plan
-
See plan
Total Critical Care Time___55__ minutes. I was immediately available to the patient and staff. I personally examined, reviewed labs, diagnostic images/reports, interpretations, treatment plans, discussed patient care with other providers and
family or caregivers. Discussed with nursing and gastroenterology
Assessment / Plan
Assessment / Plan
Impression
Patient is an 80y M with PMH significant for brainstem CVA, dementia, GERD and polyneuropathy who presents to ED from local [place] for evaluation of GI bleeding.
Acute gastrointestinal hemorrhage
Acute blood loss anemia
Hemorrhagic shock with hypotension
Acute kidney injury
Hyperkalemia
Other conditions
History of medullary stroke with chronic aphasia/dysphagia.
PEG tube in place.
ASCVD.
Benign hypertension.
IDDM.
BPH
Dementia possibly vascular
Plan
Acute no bleeding.
Acute blood loss anemia
Suspect upper GI source given presentation including hypotension, acute blood loss anemia, elevated BUN
Differential diagnosis possibly esophagitis, gastric ulcers, hemorrhagic gastritis.
All of above in the settings of dual antiplatelet therapy with aspirin and Plavix.
Admitted to IMU.
Acute blood loss anemia with appropriate response to red blood cell transfusion hemoglobin 7.9�10 (10 at the baseline). Reported last dose of Plavix 06/08
With platelet DAPT related platelet dysfunction will transfuse platelets.
NPO.
IV PPI
GI consultation with tentative plan for endoscopy on 06/10
Follow serial H&H
Acute kidney injury. Creatinine 1.4
Hyperkalemia. Potassium 6.9
All in the settings of hypotension and hemorrhagic shock as well as antihypertensive medications including ARB, Aldactone
El catheter placed in ER
Hold antihypertensives including ARB and potassium sparing diuretics
IV fluids
Blood products
Avoid further hypotension
Hyperkalemia without EKG changes
Potassium has been temporized in ED
Serial BMP
ASCVD.
Benign hypertension
Echo 09/07 with preserved biventricular function no significant valvular abnormalities.
Holding antihypertensive regimen.
History medullary CVA with significant neurologic sequela including dysphagia/aphasia status post PEG tube.
Holding aspirin and Plavix acutely
IDDM
Hemoglobin A1c pending.
Persistent hyperglycemia
Given n.p.o. status reduced basal insulin by 50% down to 15 units
Continue basal bolus protocol with serial Accu-Cheks
BPH
El placed in ED
Dementia likely vascular possibly senile type.
Hold trazodone acutely
Mechanical DVT prophylaxis
DNR
Anticipated Discharge: > 48 hours
Subjective/Interval History
-
Date of Service: June 09, 2025
Objective Data
-
Labs:
Laboratory Results
06/09/25 06/09/25 06/09/25
00:19 03:29 05:27
WBC 14.5 H
Hgb 7.9 L Cancelled
Hct 23.8 L Cancelled
Plt Count 207
PT 15.7 H 14.7 H
INR 1.22 1.12
APTT 24.5
Sodium 132 L 135
Potassium 6.9 H* 5.9 H
Chloride 100 104
Carbon Dioxide 20 L 23
BUN 89 H 87 H
Creatinine 1.4 H 1.0
Glucose 340 H 242 H
Calcium 8.8 8.7
Total Bilirubin 0.9
AST 18
ALT 19
Alkaline Phosphatase 43
06/09/25 06/09/25 06/09/25
06:00 09:29 15:29
WBC 15.3 H
Hgb 10.0 L D Pending Pending
Hct 30.3 L Pending Pending
Plt Count 162 D
PT
INR
APTT
Sodium
Potassium
Chloride
Carbon Dioxide
BUN
Creatinine
Glucose
Calcium
Total Bilirubin
AST
ALT
Alkaline Phosphatase
06/09/25 06/09/25
16:00 21:29
WBC
Hgb Pending
Hct Pending
Plt Count
PT
INR
APTT
Sodium Pending
Potassium Pending
Chloride Pending
Carbon Dioxide Pending
BUN Pending
Creatinine Pending
Glucose Pending
Calcium Pending
Total Bilirubin
AST
ALT
Alkaline Phosphatase
Vital Signs:
Vital Signs
Temp Pulse Resp BP Pulse Ox
98.4 F 92 13 104/66 98
06/09/25 03:46 06/09/25 06:00 06/09/25 06:00 06/09/25 04:00 06/09/25 07:45
I&O
06/08/25 06/09/25 06/10/25
06:59 06:59 06:59
Intake Total 500 / 500 500 / 500
Balance 500 / 500 500 / 500
Physical Exam
-
General: Well Developed and No Apparent Distress
HEENT: Normocephalic, Atraumatic and Moist Mucous Membranes
Respiratory: Clear to Auscultation
Cardiac: Regular Rhythm and S1/S2; Negative Murmur, Rub or Gallop
GI: Soft, Nontender, Nondistended, Normal Bowel Sounds and Peg Tube; Negative Organomegaly
Rectal: Deferred by Provider
Musculoskeletal: No Clubbing, No Cyanosis and No Edema
Skin: Negative Rash
Neuro: Awake, Alert and Other (Aphasic at the baseline. Following simple commands.)
[2025-06-09 09:59] LABS: Glycohemoglobin (HgbA1c) 8.0 % (4.0-5.6)
[2025-06-09] MEDS: NOVOLOG FLEXPEN-LOW RESISTANCE SC (10:02)
--- NOTE | 2025-06-09 10:34 | PTCARENOTE ---
Patient opens eyes to voice, nonverbal upon assessment, however when family came he recognized and spoke some to them. Family reports that speech has declined from stroke. VSS. NSR on monitor. Abdomen soft and patient not flinching or moaning when
palpated. PEG draining coffee-ground liquid to gravity. Protonix infusing per orders. El patent. and daughter updated at bedside. 1u platelets to be given, repeat labs later. Will continue to closely monitor.
--- NOTE | 2025-06-09 11:30 | CM ---
Initial Assessment Completed By NAKITA Thurman
NAKITA Thurman met with the daughter & spouse, patient is from [facility], and total care there. Clinical sent via [employer].
[facility]
[2025-06-09 12:17] LABS: Glucose - Point of Care 263 mg/dl (70-99)
[2025-06-09] MEDS: NOVOLOG FLEXPEN-LOW RESISTANCE 3 UNITS SC (13:29)
[2025-06-09 17:38] LABS: Hematocrit 34.0 % (39.0-52.0); Hemoglobin 11.4 g/dL (13.0-18.0)
[2025-06-09 17:56] LABS: Blood Urea Nitrogen 64 mg/dl (9-20); Calcium 9.1 mg/dl (8.4-10.2); Carbon Dioxide 27 mmol/L (22-30); Chloride 106 mmol/L (98-107); Glucose 246 mg/dl (70-99); Potassium 5.0 mmol/L (3.5-5.1); Sodium 139 mmol/L (135-145); eGFR > 60.00
[2025-06-09 18:21] LABS: Glucose - Point of Care 240 mg/dl (70-99)
[2025-06-09] MEDS: LANTUS 0.15 UNITS SC (20:54)
[2025-06-09] MEDS: NOVOLOG FLEXPEN-LOW RESISTANCE 2 UNITS SC (20:57)
[2025-06-09 21:07] LABS: Glucose - Point of Care 231 mg/dl (70-99)
[2025-06-10] VITALS (21 sets, daily range): BP systolic 102–185; BP diastolic 58–95
[2025-06-10 00:58] LABS: Hematocrit 28.0 % (39.0-52.0); Hemoglobin 9.5 g/dL (13.0-18.0)
--- NOTE | 2025-06-10 01:43 | PTCARENOTE ---
Assumed care of patient from daysnjft RN. Pt aaox1 to self. Pt responds yes or no but otherwise does not talk. NSR on monitor, hr 60-80s. SpO2 98% on RA. VS and assessment as documented. Hygiene completed. El in place draining yellow urine.
gastrostomy tube draining coffee ground fluid to gravity. Q2T ongoing. Protective foams applied to patients heels and sacral foam replaced. Pt resting in bed with call zendejas in reach and bed alarm on.
[2025-06-10 01:51] LABS: Glucose - Point of Care 212 mg/dl (70-99)
[2025-06-10] MEDS: NOVOLOG FLEXPEN-LOW RESISTANCE 2 UNITS SC ×4 (01:59→18:48)
[2025-06-10 06:13] LABS: Glucose - Point of Care 223 mg/dl (70-99)
[2025-06-10 06:22] LABS: Hematocrit 28.3 % (39.0-52.0); Hemoglobin 9.3 g/dL (13.0-18.0); Mean Corp Hgb Conc. 32.9 g/dL (33.0-37.0); Mean Corpuscular Volume 85.0 fL (80.0-94.0); Nucleated Red Blood Cells % 0 % (-); Platelet Count 170 10^3/uL (130-400); Red Cell Dist. Width 14.6 % (11.5-14.5)
[2025-06-10] MEDS: PROTONIX 100 IV ×2 (06:39→23:06)
[2025-06-10] MEDS: NSS 1000 IV ×2 (06:39→18:42)
[2025-06-10 07:12] LABS: Blood Urea Nitrogen 39 mg/dl (9-20); Calcium 8.9 mg/dl (8.4-10.2); Carbon Dioxide 26 mmol/L (22-30); Chloride 111 mmol/L (98-107); Glucose 206 mg/dl (70-99); Potassium 4.2 mmol/L (3.5-5.1); Sodium 142 mmol/L (135-145); eGFR > 60.00
--- NOTE | 2025-06-10 10:28 | PN.CDI ---
CDI
- -
CDI:
Physician Documentation Request
Admit Date: 06/09/25 02:59
Dear Doctor Godwin,
Please review the following and provide your response in the progress notes.
Clinical Indicators:
Pt admitted with GI bleed /ABLA
Documented per ED, ' Neuro: somnolent but arousable. does not follow commands...'
Progress note 06/09, ' History of medullary stroke with chronic aphasia/dysphagia.PEG tube in place....Dementia possibly vascular..'
Pt has El catheter in place
Case management note 06/09, ' ...patient is from [facility], and total care there. ...'
Documented per rehab panel ,'Previous functional ability..Dependent..'
Please provide a diagnosis for the pts current functional ability:
Functional Quadriplegia -complete immobility due to severe physical disability or frailty
Weakness only
Other ( please specify)
Use of terms such as suspected, likely, concern for, or probable (associated with a specific diagnosis that is being evaluated, monitored, or treated as if it exists) are acceptable and can be coded in the inpatient setting, when documented at the
time of discharge.
Thank you,
Mercedes Masters RN
CDI Specialist
[place] [facility]
Please use your independent medical judgment in providing your response.
[2025-06-10 11:29] LABS: Glucose - Point of Care 230 mg/dl (70-99)
[2025-06-10 13:14] LABS: Glucose - Point of Care 261 mg/dl (70-99)
[2025-06-10] MEDS: REGLAN 10 MG IV (13:14)
--- NOTE | 2025-06-10 15:00 | W.PN.HOSP.TC ---
Today's Communication/Plan
-
CT angio
IV PPI
Transfuse and monitor hemoglobin
Continue IV fluids while n.p.o.
Assessment / Plan
Assessment / Plan
Impression
Patient is an 80y M with PMH significant for brainstem CVA, dementia, GERD and polyneuropathy who presents to ED from local [place] for evaluation of GI bleeding.
Acute gastrointestinal hemorrhage
Acute blood loss anemia
Hemorrhagic shock with hypotension
Acute kidney injury
Hyperkalemia
Other conditions
History of medullary stroke with chronic aphasia/dysphagia.
PEG tube in place.
ASCVD.
Benign hypertension.
IDDM.
BPH
Dementia possibly vascular
Plan
Acute no bleeding.
Acute blood loss anemia
Suspect upper GI source given presentation including hypotension, acute blood loss anemia, elevated BUN
Differential diagnosis possibly esophagitis, gastric ulcers, hemorrhagic gastritis.
All of above in the settings of dual antiplatelet therapy with aspirin and Plavix.
Admitted to IMU.
Acute blood loss anemia with appropriate response to red blood cell transfusion hemoglobin 7.9�10 (10 at the baseline). Reported last dose of Plavix 06/08
With DAPT related platelet dysfunction received platelet transfusion on 06/09
EGD 06/10 with findings consistent of old and fresh blood in the stomach mostly fundus. Suspected bleeding ulcer without clear identification of a source and attempt of clip placement.
CT angiogram ordered to identify/confirm additional source of bleeding
Remains hemodynamically stable with hemoglobin at 9.3. (Status post 2 units of packed red blood cells) antiplatelet received on 06/09)
Given active bleeding will order additional 1 unit of packed red blood cells
Follow-up serial H&H
Continue IV PPI
Discussed with GI
Acute kidney injury. Creatinine 1.4, improved
Hyperkalemia. Potassium 6.9, resolved
All in the settings of hypotension and hemorrhagic shock as well as antihypertensive medications including ARB, Aldactone
El catheter placed in ER
Hold antihypertensives including ARB and potassium sparing diuretics
Improved with IV fluids and transfusions
Avoid further hypotension
Hyperkalemia without EKG changes
Potassium has been temporized in ED
ASCVD.
Benign hypertension
Echo 09/07 with preserved biventricular function no significant valvular abnormalities.
Holding antihypertensive regimen.
History medullary CVA with significant neurologic sequela including dysphagia/aphasia status post PEG tube.
Holding aspirin and Plavix acutely
IDDM
Hemoglobin A1c pending.
Persistent hyperglycemia
Given n.p.o. status reduced basal insulin by 50% down to 15 units
Continue basal bolus protocol with serial Accu-Cheks
BPH
El placed in ED
Dementia likely vascular possibly senile type.
Hold trazodone acutely
Mechanical DVT prophylaxis
DNR
Anticipated Discharge: > 48 hours
Subjective/Interval History
-
Date of Service: June 10, 2025
Objective Data
-
Labs:
Laboratory Results
06/10/25
05:57
WBC 9.2
Hgb 9.3 L
Hct 28.3 L
Plt Count 170
Sodium 142
Potassium 4.2
Chloride 111 H
Carbon Dioxide 26
BUN 39 H
Creatinine 0.6 L
Glucose 206 H
Calcium 8.9
Vital Signs:
Vital Signs
Temp Pulse Resp BP Pulse Ox
97.7 F 83 12 158/74 97
06/10/25 13:19 06/10/25 13:00 06/10/25 13:00 06/10/25 13:15 06/10/25 13:15
I&O
06/09/25 06/10/25 06/11/25
06:59 06:59 06:59
Intake Total 500 / 500 2337 / 2337
Output Total 1900 / 1900
Balance 500 / 500 437 / 437
Physical Exam
-
General: Well Developed and No Apparent Distress
HEENT: Normocephalic, Atraumatic and Moist Mucous Membranes
Respiratory: Clear to Auscultation
Cardiac: Regular Rhythm and S1/S2; Negative Murmur, Rub or Gallop
GI: Soft, Nontender, Nondistended, Normal Bowel Sounds and Peg Tube; Negative Organomegaly
Rectal: Deferred by Provider
Musculoskeletal: No Clubbing, No Cyanosis and No Edema
Skin: Negative Rash
Neuro: Awake, Alert and Other (Aphasic at the baseline. Following simple commands.)
--- NOTE | 2025-06-10 16:16 | CM ---
Following up on Patient. Medical Notes state that patient continues to be monitored for his GI bleed. Discharge is still at greater than 48hours.
PLAN: Return to [facility] when ready.
[2025-06-10 18:57] LABS: Glucose - Point of Care 225 mg/dl (70-99)
[2025-06-10 22:56] LABS: Hematocrit 31.2 % (39.0-52.0); Hemoglobin 10.5 g/dL (13.0-18.0)
[2025-06-10] MEDS: LANTUS 0.15 UNITS SC (23:06)
[2025-06-10] MEDS: NOVOLOG FLEXPEN-LOW RESISTANCE 1 UNITS SC (23:06)
[2025-06-10 23:15] LABS: Glucose - Point of Care 197 mg/dl (70-99)
[2025-06-11] VITALS (13 sets, daily range): BP systolic 146–184; BP diastolic 71–95
[2025-06-11 03:39] LABS: Hematocrit 30.0 % (39.0-52.0); Hemoglobin 10.3 g/dL (13.0-18.0); Mean Corp Hgb Conc. 34.3 g/dL (33.0-37.0); Mean Corpuscular Volume 86.0 fL (80.0-94.0); Nucleated Red Blood Cells % 0 % (-); Platelet Count 162 10^3/uL (130-400); Red Cell Dist. Width 14.5 % (11.5-14.5)
--- NOTE | 2025-06-11 03:44 | PTCARENOTE ---
Pt removed his IV. New IV placed and b/t soft wrist restraints applied to prevent patient from removing any other tubes. AUTOMOTIVE GLASS MECHANIC notified and order received for restraints.
[2025-06-11 04:03] LABS: Blood Urea Nitrogen 23 mg/dl (9-20); Calcium 8.6 mg/dl (8.4-10.2); Carbon Dioxide 24 mmol/L (22-30); Chloride 113 mmol/L (98-107); Glucose 186 mg/dl (70-99); Potassium 3.7 mmol/L (3.5-5.1); Sodium 141 mmol/L (135-145); eGFR > 60.00
[2025-06-11] MEDS: NSS 1000 IV (05:48)
[2025-06-11] MEDS: NOVOLOG FLEXPEN-LOW RESISTANCE 1 UNITS SC ×3 (05:49→18:18)
[2025-06-11 06:00] LABS: Glucose - Point of Care 191 mg/dl (70-99)
[2025-06-11] MEDS: PROTONIX IV (06:07)
[2025-06-11] MEDS: PROTONIX 100 IV ×2 (08:56→19:26)
--- NOTE | 2025-06-11 09:22 | W.PN.GI.CBS2 ---
Addendum entered and electronically signed by Doreen Vega Do, MD 06/16/25 09:01:
CDI query: EGD on 06/10 with acute actively bleeding in stomach from suspected ulcer
Original Note:
Today's Communication / Plan
-
Family updated with results of EGD and CTA
PEG tube lavaging clear and H/H stable
Hold on repeat EGD today given stability clinically. Hold plavix discharge specialist Family agrees given his advanced age
Anticipate TF to resume tomorrow.
GI will follow
Assessment / Plan
-
Pt is an 80yo with hx GERD, gastric ulcers, CVA on chronic Plavix with dysphagia and chronic peg, HTN, NIDDM, dementia, BPH, ambulatory dysfunction with onset of pink tinged drainage around peg. Per ER notes had brown stool at SNF but in ER noted
with gelatinous maroon stool. On admission hbg 7.9 with normal range 9-10 and pt transfused. Other labs with WBC 14,500, Na 132, K 6.9, creat 1.4, glucose 340, normal LFT's and albumin 3.3.
Prior scopes --08/2022- [facility] - grade A esophagitis, non bleeding gastric ulcers without bleeding, peg was placed and colonoscopy 15-20 years ago.
Impression
-GI bleed with pink tinged around peg and gelatinous maroon stool
-dark drainage from peg after admission
EGD done 06/10 with large clot old/fresh blood around fundus. s/p epi injection 6mL then clip for marking
CTA 06/10 negative
-anemia acute blood loss secondary to GI bleeding
-CVA on chronic Plavix
-dysphagia with chronic peg
-hx GERD
-hx prior esophagitis and gastric ulcers on EGD
other med problems:
-NIDDM
-dementia
-BPH
-ambulatory dysfunction
Recommendations:
- CTA and EGD results reviewed again with family today via phone/ Daughter
- Given stable H/H and no further bloody output on PEG tube lavage would hold on repeat EGD to ID source of UGIB. Suspect PUD though
- Plavix hold last dose 06/08 AM. Family wants to hold discharge specialist
- C/w protonix gtt. Will need PPI BID x3mo then discharge specialist daily basis
- Anticipate resumption of TF tomorrow if continues to remain stable
Will follow with you
Total Time Spent with Patient (in minutes): 45 mins including family discussion via phone
Subjective
Subjective
Date of Service: June 11, 2025
Family feels that he is more awake today. NGT to gravity and lavaged now clear liquids. Txf 1 unit prbc yesterday
Objective
Data Reviewed
Laboratory Data:
Laboratory Results
06/11/25 03:05
Laboratory Results
PT 14.7 Sec (11.4-14.6) H 06/09/25 05:27
INR 1.12 06/09/25 05:27
APTT 24.5 Sec (23.4-35.0) 06/09/25 00:19
Total Bilirubin 0.9 mg/dl (0.2-1.3) 06/09/25 00:19
AST 18 U/L (17-59) 06/09/25 00:19
ALT 19 U/L (0-50) 06/09/25 00:19
Alkaline Phosphatase 43 U/L (38-126) 06/09/25 00:19
Vital Signs and I&O:
Vital Signs
Temp Pulse Resp BP Pulse Ox
98.0 F 83 14 151/74 97
06/11/25 07:17 06/11/25 06:00 06/11/25 06:00 06/11/25 06:00 06/11/25 06:21
I&O
06/10/25 06/11/25 06/12/25
06:59 06:59 06:59
Intake Total 2337 / 2337 1550 / 1550 30 / 30
Output Total 1900 / 1900 2150 / 2150 600 / 600
Balance 437 / 437 -600 / -600 -570 / -570
Physical Exam
Physical Exam
GEN: No acute distress non verbal
HEENT: anicteric, extraocular movements intact, smiles
GI: soft, non-distended, not tender to palpation, PEG in LUQ lavaging clear
EXT: warm, well perfused, trace edema bilaterally
NEURO: not able to answer questions, non-focal
[2025-06-11 10:48] LABS: Hemoglobin 10.2 g/dL (13.0-18.0)
[2025-06-11] MEDS: 0.45% NACL with KCL 20 MEQ 1000 IV ×2 (11:16→19:37)
--- NOTE | 2025-06-11 12:17 | W.PN.HOSP.TC ---
Today's Communication/Plan
-
Continue IV PPI
Monitor hemoglobin
IV fluids
Follow and replete electrolytes
Follow CBC/BMP
Off Plavix
Hope to resume tube feeding tomorrow
Continue reduced dose of Lantus and basal bolus protocol with serial Accu-Cheks
Assessment / Plan
Assessment / Plan
Impression
Patient is an 80y M with PMH significant for brainstem CVA, dementia, GERD and polyneuropathy who presents [facility] ED from local [facility] for evaluation of GI bleeding.
Acute gastrointestinal hemorrhage
Acute blood loss anemia
Hemorrhagic shock with hypotension
Acute kidney injury
Hyperkalemia
Other conditions
History of medullary stroke with chronic aphasia/dysphagia.
PEG tube in place.
ASCVD.
Benign hypertension.
IDDM.
BPH
Dementia possibly vascular
Plan
Acute no bleeding.
Acute blood loss anemia
Suspect upper GI source given presentation including hypotension, acute blood loss anemia, elevated BUN
Differential diagnosis possibly esophagitis, gastric ulcers, hemorrhagic gastritis.
All of above in the settings of dual antiplatelet therapy with aspirin and Plavix.
Admitted to IMU.
Acute blood loss anemia with appropriate response to red blood cell transfusion hemoglobin 7.9�10 (10 at the baseline). Reported last dose of Plavix 06/08
With DAPT related platelet dysfunction received platelet transfusion on 06/09
EGD 06/10 with findings consistent of old and fresh blood in the stomach mostly fundus. Suspected bleeding ulcer without clear identification of a source and attempt of clip placement.
Angiogram performed after EGD on 06/10 with no active bleeding
But acute blood loss from 06/11 clear
Remains hemodynamically stable with hemoglobin at 10.2 (Status post 3 units of packed red blood cells) antiplatelet received on 06/09)
Follow-up serial H&H
Continue IV PPI
Hope to resume PEG tube feeding on 06/12
Off Plavix indefinitely
Discussed with GI
Acute kidney injury. Creatinine 1.4, improved
Hyperkalemia. Potassium 6.9, resolved
All in the settings of hypotension and hemorrhagic shock as well as antihypertensive medications including ARB, Aldactone
El catheter placed in ER
Hold antihypertensives including ARB and potassium sparing diuretics
Improved with IV fluids and transfusions
Avoid further hypotension
Hyperkalemia without EKG changes
Potassium has been temporized in ED
ASCVD.
Benign hypertension
Echo 09/07 with preserved biventricular function no significant valvular abnormalities.
Holding antihypertensive regimen.
History medullary CVA with significant neurologic sequela including dysphagia/aphasia status post PEG tube.
Holding aspirin and Plavix acutely
IDDM
Hemoglobin A1c 8.0
Permissive hyperglycemia while off tube feeding
Given n.p.o. status reduced basal insulin by 50% down to 15 units
Continue basal bolus protocol with serial Accu-Cheks
BPH
El placed in ED
Dementia likely vascular possibly senile type.
Hold trazodone acutely
Mechanical DVT prophylaxis
DNR
Anticipated Discharge: 24 - 48 hours
Subjective/Interval History
-
Date of Service: June 11, 2025
Objective Data
-
Labs:
Laboratory Results
06/11/25 06/11/25 06/11/25
03:05 03:05 10:16
WBC 9.8
Hgb 10.3 L Cancelled 10.2 L
Hct 30.0 L
Plt Count 162
Sodium 141
Potassium 3.7
Chloride 113 H
Carbon Dioxide 24
BUN 23 H
Creatinine 0.6 L
Glucose 186 H
Calcium 8.6
Vital Signs:
Vital Signs
Temp Pulse Resp BP Pulse Ox
99.5 F 83 14 151/74 97
06/11/25 11:12 06/11/25 06:00 06/11/25 06:00 06/11/25 06:00 06/11/25 06:21
I&O
06/10/25 06/11/25 06/12/25
06:59 06:59 06:59
Intake Total 2337 / 2337 1550 / 1550 30 / 30
Output Total 1900 / 1900 2150 / 2150 600 / 600
Balance 437 / 437 -600 / -600 -570 / -570
Physical Exam
-
General: Well Developed and No Apparent Distress
HEENT: Normocephalic, Atraumatic and Moist Mucous Membranes
Respiratory: Clear to Auscultation
Cardiac: Regular Rhythm and S1/S2; Negative Murmur, Rub or Gallop
GI: Soft, Nontender, Nondistended, Normal Bowel Sounds and Peg Tube; Negative Organomegaly
Rectal: Deferred by Provider
Musculoskeletal: No Clubbing, No Cyanosis and No Edema
Skin: Negative Rash
Neuro: Awake, Alert and Other (Aphasic at the baseline. Following simple commands.)
[2025-06-11 13:01] LABS: Glucose - Point of Care 176 mg/dl (70-99)
[2025-06-11] MEDS: NSS IV (13:59)
--- NOTE | 2025-06-11 14:20 | PN.CDI ---
CDI
- -
CDI:
Physician Documentation Request
Admit Date: 06/09/25 02:59
Dear Doctor Godwin,
Please review the following and provide your response in the progress notes.
Clinical Indicators:
Pt admitted with GI bleed /ABLA
GI Progress note 06/11,' Hold plavix ad terminal makeup operator ...EGD done 06/10 with large clot old/fresh blood around fundus. s/p epi injection 6mL then clip for marking... Suspect PUD though....'
Progress note 06/11 ,' Suspect upper GI source given presentation including hypotension, acute blood loss anemia, elevated BUN...All of above in the settings of dual antiplatelet therapy with aspirin and Plavix....'
Please clarify the relationship between these conditions:
Yes, _GI bleed /ABLA __ is related to/associated with/exacerbated by Plavix /ASA use ___.
No, _GI bleed /ABLA __ is not related to/associated with/exacerbated by Plavix /ASA use ___ but it is due to ___. (Please specify)
Other ( please specify)
Use of terms such as suspected, likely, concern for, or probable (associated with a specific diagnosis that is being evaluated, monitored, or treated as if it exists) are acceptable and can be coded in the inpatient setting, when documented at the
time of discharge.
Thank you,
Mercedes Masters RN
CDI Specialist
[place] Text
Please use your independent medical judgment in providing your response.
--- NOTE | 2025-06-11 14:25 | PN.CDI ---
CDI
- -
CDI:
Physician Documentation Request
Admit Date: 06/09/25 02:59
Dear Doctor,
Please review the following and provide your response in the progress notes.
Clinical Indicators:
Pt admitted with GI bleed /ABLA
EGD, ' Old and fresh blood in stomach mostly pooling in the fundus.Unable to clear despite using Rescue net. Injected 6mL of dilutedepinephrine and clip placed nearby. Suspect ulcer bleeding but noable to clear blood clot to fully visualize.'
Progress note 06/11, ' Given stable H/H and no further bloody output on PEG tube lavage would hold on repeat EGD to ID source of UGIB. Suspect PUD though...'
Clarify which of the following accurately represents the suspected acuity of the ( bleeding ulcer ) :
Acute Peptic Ulcer with bleeding
Acute on Chronic Peptic Ulcer with bleeding
Other ( please specify)
Use of terms such as suspected, likely, concern for, or probable (associated with a specific diagnosis that is being evaluated, monitored, or treated as if it exists) are acceptable and can be coded in the inpatient setting, when documented at the
time of discharge.
Thank you,
Mercedes Masters RN
CDI Specialist
[place] Text
Please use your independent medical judgment in providing your response.
[2025-06-11] MEDS: APRESOLINE 10 MG IV (14:40)
--- NOTE | 2025-06-11 17:15 | PTCARENOTE ---
Patient AAOx2, cries out occasionally but when asked if something is wrong he says no, says he is lonely. Comfort provided, family at bedside most of day. B/L wrist restraints intact and educated on. BPs elevated today, PRN hydralazine given.
Patients temp increasing, currently 100.2, PRN tylenol ordered, IV team coming to place second line to give this dose. Protonix gtt infusing per protocol. PEG tube to gravity, emptied coffeeground drainage this morning from bag but no output since
except flushes. El with yellow urine. Will continue to closely monitor.
[2025-06-11 18:24] LABS: Glucose - Point of Care 164 mg/dl (70-99)
[2025-06-11] MEDS: OFIRMEV 100 IV (20:04)
[2025-06-11] MEDS: LANTUS 0.15 UNITS SC (20:04)
[2025-06-11 20:19] LABS: Glucose - Point of Care 166 mg/dl (70-99)
[2025-06-11 23:44] LABS: Glucose - Point of Care 124 mg/dl (70-99)
[2025-06-11] MEDS: NOVOLOG FLEXPEN-LOW RESISTANCE SC (23:44)
[2025-06-12] VITALS (13 sets, daily range): BP systolic 145–163; BP diastolic 76–96; BMI 26.2
[2025-06-12] MEDS: APRESOLINE 10 MG IV ×2 (04:07→18:11)
[2025-06-12] MEDS: PROTONIX 100 IV (04:08)
[2025-06-12 04:16] LABS: Hematocrit 31.2 % (39.0-52.0); Hemoglobin 10.4 g/dL (13.0-18.0); Mean Corp Hgb Conc. 33.3 g/dL (33.0-37.0); Mean Corpuscular Volume 85.7 fL (80.0-94.0); Nucleated Red Blood Cells % 0 % (-); Red Cell Dist. Width 14.4 % (11.5-14.5)
[2025-06-12 04:21] LABS: Blood Urea Nitrogen 17 mg/dl (9-20); Calcium 8.5 mg/dl (8.4-10.2); Carbon Dioxide 18 mmol/L (22-30); Chloride 113 mmol/L (98-107); Glucose 116 mg/dl (70-99); Potassium 4.0 mmol/L (3.5-5.1); Sodium 140 mmol/L (135-145); eGFR > 60.00
[2025-06-12 05:15] LABS: Platelet Count 175 10^3/uL (130-400)
[2025-06-12] MEDS: 0.45% NACL with KCL 20 MEQ 1000 IV ×2 (05:31→15:28)
[2025-06-12] MEDS: NOVOLOG FLEXPEN-LOW RESISTANCE SC ×3 (05:41→18:13)
[2025-06-12 05:48] LABS: Glucose - Point of Care 132 mg/dl (70-99)
--- NOTE | 2025-06-12 06:29 | PTCARENOTE ---
Tmax 100.5 overnight. PRN offirmev administered with positive results. Abdomen remains round and distended but soft. Protonix gtt & IVF infusing. Peg to drainage bag with no coffee ground output overnight. 120 ml output of tap water that tube was
flushed with. Restraints in place to prevent pulling of tubes. El removed this am per order and patient is due to void at noon. Patient calls out at times and is unable to make needs known. Emotional support provided. Will continue to monitor.
--- NOTE | 2025-06-12 09:24 | W.PN.GI.CBS2 ---
Today's Communication / Plan
-
Can DC Protonix drip and change to bid IV and once tolerating tube feeds can change to Protonix granules through the PEG twice daily
Okay to resume tube feeds today
Assessment / Plan
-
Pt is an 80yo with hx GERD, gastric ulcers, CVA on chronic Plavix with dysphagia and chronic peg, HTN, NIDDM, dementia, BPH, ambulatory dysfunction with onset of pink tinged drainage around peg. Per ER notes had brown stool at SNF but in ER noted
with gelatinous maroon stool. On admission hbg 7.9 with normal range 9-10 and pt transfused. Other labs with WBC 14,500, Na 132, K 6.9, creat 1.4, glucose 340, normal LFT's and albumin 3.3.
Prior scopes --08/2022- [facility] - grade A esophagitis, non bleeding gastric ulcers without bleeding, peg was placed and colonoscopy 15-20 years ago.
Impression
-GI bleed with pink tinged around peg and gelatinous maroon stool
-dark drainage from peg after admission
EGD done 06/10 with large clot old/fresh blood around fundus. s/p epi injection 6mL then clip for marking
CTA 06/10 negative
-anemia acute blood loss secondary to GI bleeding
-CVA on chronic Plavix
-dysphagia with chronic peg
-hx GERD
-hx prior esophagitis and gastric ulcers on EGD
other med problems:
-NIDDM
-dementia
-BPH
-ambulatory dysfunction
Recommendations:
-No further active bleeding and hemoglobin stable status post total 3 units of packed red blood cells 2 units on 06/09 and 1 unit on 06/10 and also received platelets on 06/09. Most likely source could be Dieulafoy lesion versus PUD vs Angiectasia,
although was unable to clearly identify sourse since there was clot and blood in the fundus on EGD status post epi and clip for marking on 06/10.
-Since he has no further bleeding will hold on repeat endoscopy
-Okay to start tube feeds today.
- Plavix hold last dose 06/08 AM. Family wants to hold correction
- C/w protonix can change to bid and DC gtt. Will need PPI BID x3mo then parts counterman daily basis
- Will s/o and will be available as needed
Subjective
Subjective
Date of Service: June 12, 2025
Patient awake and looks comfortable. No blood noted in the PEG.. Discussed with nurse no reported melena. Hemoglobin stable posttransfusion
Objective
Data Reviewed
Laboratory Data:
Laboratory Results
06/12/25 03:36
06/12/25 03:36
Laboratory Results
PT 14.7 Sec (11.4-14.6) H 06/09/25 05:27
INR 1.12 06/09/25 05:27
APTT 24.5 Sec (23.4-35.0) 06/09/25 00:19
Total Bilirubin 0.9 mg/dl (0.2-1.3) 06/09/25 00:19
AST 18 U/L (17-59) 06/09/25 00:19
ALT 19 U/L (0-50) 06/09/25 00:19
Alkaline Phosphatase 43 U/L (38-126) 06/09/25 00:19
Vital Signs and I&O:
Vital Signs
Temp Pulse Resp BP Pulse Ox
98.1 F 99 19 145/76 97
06/12/25 07:52 06/12/25 06:00 06/12/25 06:00 06/12/25 06:00 06/12/25 06:00
I&O
06/11/25 06/12/25 06/13/25
06:59 06:59 06:59
Intake Total 1550 / 1550 180 / 180
Output Total 2150 / 2150 2165 / 2165
Balance -600 / -600 -1984 /
Physical Exam
Physical Exam
Cardiology: Normal Sinus Rhythm
Pulmonary: Clear
GI: Soft, Non Distended, Non Tender and Normal Bowel Sounds
[2025-06-12 12:29] LABS: Glucose - Point of Care 117 mg/dl (70-99)
--- NOTE | 2025-06-12 13:30 | PTCARENOTE ---
Order received to start TF per mill tender second operator. Awaiting mill tender second operator for recommended TF orders.
--- NOTE | 2025-06-12 15:30 | PN.CDI ---
CDI
- -
CDI:
Physician Documentation Request
Admit Date: 06/09/25 02:59
Dear Doctor Godwin ,
Please review the following and provide your response in the progress notes.
Clinical Indicators:
Pt admitted with GI bleed /ABLA
Documented per nursing wound care assessment 06/09, 'Presents on admission sacrum pressure injury stage 2 ...treatment provided silicone border...'
Physician documentation of the type and location of wounds is required for compliant documentation. Based on the above clinical findings and your assessment, please provide the following in your progress note:
1. Location of the ulcer/wound, including laterality.
2. Type (etiology) of ulcer/wound:
- Pressure (decubitus) ulcer
- Non-pressure ulcer
- Other ( please specify)
Use of terms such as suspected, likely, concern for, or probable (associated with a specific diagnosis that is being evaluated, monitored, or treated as if it exists) are acceptable and can be coded in the inpatient setting, when documented at the
time of discharge.
Thank you,
Mercedes Masters RN
CDI Specialist
[place] [facility]
Please use your independent medical judgment in providing your response.
*Source: National Pressure Ulcer Advisory Panel (NPUAP)
--- NOTE | 2025-06-12 15:36 | PN.CDI ---
CDI
- -
CDI:
Physician Documentation Request
Admit Date: 06/09/25 02:59
Dear Doctor Godwin,
Please review the following and provide your response in the progress notes.
Clinical Indicators:
Pt admitted with GI bleed /ABLA/PINKY /Hemorrhagic shock
Pt care note 06/11 @ 0344,' Pt removed his IV. New IV placed and b/t soft wrist restraints applied to prevent patient from removing any other tubes....'
Pt care note 06/09 @ 1715,' Patient AAOx2, cries out occasionally but when asked if something is wrong he says no, says he is lonely. Comfort provided, family at bedside most of day. B/L wrist restraints intact and educated on..'
Documented in the record, ' Dementia possibly vascular...'
Based on the above, could you clarify in the Progress Notes and Discharge Summary which, if any of the following, is the most likely etiology of the confusion/altered mental status.
Metabolic Encephalopathy/Vascular dementia with behavioral disturbances
Vascular Dementia with Behavioral disturbances only
Other ( please specify)
Use of terms such as suspected, likely, concern for, or probable (associated with a specific diagnosis that is being evaluated, monitored, or treated as if it exists) are acceptable and can be coded in the inpatient setting, when documented at the
time of discharge.
Thank you,
Mercedes Masters RN
CDI Specialist
[place] Text
Please use your independent medical judgment in providing your response.
--- NOTE | 2025-06-12 15:43 | W.PN.HOSP.TC ---
Today's Communication/Plan
-
Resume tube feeding.
Continue IV PPI with plan to transition to enteral if tolerates tube feeding.
Monitor blood glucose and adjust insulin accordingly returning to preadmission dose
El catheter removed
Assessment / Plan
Assessment / Plan
Impression
Patient is an 80y M with PMH significant for brainstem CVA, dementia, GERD and polyneuropathy who presents to ED from local [place] for evaluation of GI bleeding.
Acute gastrointestinal hemorrhage secondary to gastric ulcer secondary to Plavix
Acute blood loss anemia
Hemorrhagic shock with hypotension
Acute kidney injury
Hyperkalemia
Other conditions
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
PEG tube in place.
ASCVD.
Benign hypertension.
IDDM.
BPH
Dementia vascular type without behavioral disturbance
Sacral pressure ulcer stage II present on admission
Plan
Acute no bleeding.
Acute blood loss anemia
Suspect upper GI source given presentation including hypotension, acute blood loss anemia, elevated BUN
Differential diagnosis possibly esophagitis, gastric ulcers, hemorrhagic gastritis.
All of above in the settings of dual antiplatelet therapy with aspirin and Plavix.
Admitted to IMU.
Acute blood loss anemia with appropriate response to red blood cell transfusion hemoglobin 7.9�10 (10 at the baseline). Reported last dose of Plavix 06/08
With DAPT related platelet dysfunction received platelet transfusion on 06/09
EGD 06/10 with findings consistent of old and fresh blood in the stomach mostly fundus. Suspected bleeding ulcer without clear identification of a source and attempt of clip placement.
Angiogram performed after EGD on 06/10 with no active bleeding
Remains hemodynamically stable with hemoglobin at 10.4 (Status post 3 units of packed red blood cells) antiplatelet received on 06/09)
Gastric lavage on 06/11 with clear return
Resume tube feeds
Transition off IV Protonix drip to twice daily.
Transition to oral Protonix if tolerates tube feeds over the next 24 hours
Plavix had been discontinued indefinitely
Acute kidney injury. Creatinine 1.4, improved
Hyperkalemia. Potassium 6.9, resolved
All in the settings of hypotension and hemorrhagic shock as well as antihypertensive medications including ARB, Aldactone
El catheter placed in ER, removed
Hold antihypertensives including ARB and potassium sparing diuretics
Improved with IV fluids and transfusions
Avoid further hypotension
Hyperkalemia without EKG changes
Potassium has been temporized in ED
ASCVD.
Benign hypertension
Echo 09/07 with preserved biventricular function no significant valvular abnormalities.
Holding antihypertensive regimen.
History medullary CVA with significant neurologic sequela including dysphagia/aphasia status post PEG tube.
Holding aspirin and Plavix acutely
IDDM
Hemoglobin A1c 8.0
Permissive hyperglycemia while off tube feeding
Given n.p.o. status reduced basal insulin by 50% down to 15 units
Resume tube feeding and adjust insulin dose accordingly.
Continue basal bolus protocol with serial Accu-Cheks
BPH
El placed in ED
Dementia likely vascular possibly senile type.
Hold trazodone acutely
Mechanical DVT prophylaxis
DNR
Anticipated Discharge: 24 - 48 hours
Subjective/Interval History
-
Date of Service: June 12, 2025
Objective Data
-
Labs:
Laboratory Results
06/12/25
03:36
WBC 9.6
Hgb 10.4 L
Hct 31.2 L
Plt Count 175
Sodium 140
Potassium 4.0
Chloride 113 H
Carbon Dioxide 18 L
BUN 17
Creatinine 0.6 L
Glucose 116 H
Calcium 8.5
Vital Signs:
Vital Signs
Temp Pulse Resp BP Pulse Ox
98.9 F 103 22 150/96 97
06/12/25 15:34 06/12/25 14:00 06/12/25 14:00 06/12/25 14:00 06/12/25 14:00
I&O
06/11/25 06/12/25 06/13/25
06:59 06:59 06:59
Intake Total 1550 / 1550 180 / 180
Output Total 2150 / 2150 2165 / 2165
Balance -600 / -600 -1984 / -1984
Physical Exam
-
General: Well Developed and No Apparent Distress
HEENT: Normocephalic, Atraumatic and Moist Mucous Membranes
Respiratory: Clear to Auscultation
Cardiac: Regular Rhythm and S1/S2; Negative Murmur, Rub or Gallop
GI: Soft, Nontender, Nondistended, Normal Bowel Sounds and Peg Tube; Negative Organomegaly
Rectal: Deferred by Provider
Musculoskeletal: No Clubbing, No Cyanosis and No Edema
Skin: Negative Rash
Neuro: Awake, Alert and Other (Aphasic at the baseline. Following simple commands.)
--- NOTE | 2025-06-12 16:11 | CM ---
Following up w/ Patient. RN stated that patient's tube feeds may today, was NPO last night, may repeat EGD, may not.
PLAN: Return to [facility] when ready.
--- NOTE | 2025-06-12 16:51 | PTCARENOTE ---
Caring for pt throughout the day. Aox1. ST to NSR on tele monitor. IVF infusing as ordered. Order received to start tube feeds. Jevity 1.5 initiated at 20ml/hr with goal rate of 45ml/hr and 25ml/hr flush. Family at bedside, updated on plan of care.
Q2T and safe environment maintained.
--- NOTE | 2025-06-12 18:15 | PTCARENOTE ---
Pt hypertensive, PRN hydralazine administered, see MAR.
[2025-06-12 18:24] LABS: Glucose - Point of Care 127 mg/dl (70-99)
[2025-06-12] MEDS: PROTONIX IV 40 MG IV (19:39)
[2025-06-12] MEDS: NSS (PRESERVATIVE FREE) 10 ML IV (19:39)
[2025-06-12] MEDS: LANTUS 0.15 UNITS SC (21:24)
[2025-06-12 21:34] LABS: Glucose - Point of Care 150 mg/dl (70-99)
[2025-06-12] MEDS: OFIRMEV 100 IV (22:40)
--- NOTE | 2025-06-12 22:41 | W.PN.UPDATE ---
Update Note
Progress Note Update
Fever of 99.5->101.4 at present.
06/11.Fever of 100.5 Chest Xray neg
patient seen and evaluated, denies any pain. Will order Influenza, Covid, UA, Wound culture and blood culture.
Tylenol IV x1.
150/79 92 19 94%
[2025-06-12 23:49] LABS: Glucose - Point of Care 168 mg/dl (70-99)
[2025-06-12 23:53] LABS: Urine Character Clear (Clear)
[2025-06-13] VITALS (20 sets, daily range): BP systolic 117–166; BP diastolic 61–98
[2025-06-13] MEDS: NOVOLOG FLEXPEN-LOW RESISTANCE 3 UNITS SC ×4 (00:06→23:34)
[2025-06-13] MEDS: SENNA SYRUP 8.8 MG TUBE (00:06)
[2025-06-13 00:18] LABS: COVID-19 Antigen Negative (Negative)
--- NOTE | 2025-06-13 00:24 | PTCARENOTE ---
Patient with oral temp of 101.4. deputy brand inspector provider made aware and ordered offirmev x1, blood, urine, and wound cultures. Covid and flu culturesalso obtained. Will continue to monitor.
--- NOTE | 2025-06-13 00:27 | PTCARENOTE ---
Patient with no BM since 06/09. Abdomen round, distended, soft with hypoactive bowel sounds. nut sorter provider made aware and ordered 1xdose senna administered via tube. Will continue to monitor.
[2025-06-13 00:41] LABS: Urine Squamous Cell 0-2 /LPF (Few); Urine White Cell 0-2 /HPF (0-5)
[2025-06-13] MEDS: 0.45% NACL with KCL 20 MEQ 1000 IV ×2 (01:15→11:19)
[2025-06-13 04:04] LABS: Hematocrit 31.2 % (39.0-52.0); Hemoglobin 10.4 g/dL (13.0-18.0); Mean Corp Hgb Conc. 33.3 g/dL (33.0-37.0); Mean Corpuscular Volume 85.2 fL (80.0-94.0); Nucleated Red Blood Cells % 0 % (-); Platelet Count 188 10^3/uL (130-400); Red Cell Dist. Width 14.6 % (11.5-14.5)
[2025-06-13 04:08] LABS: Blood Urea Nitrogen 14 mg/dl (9-20); Calcium 8.3 mg/dl (8.4-10.2); Carbon Dioxide 18 mmol/L (22-30); Chloride 110 mmol/L (98-107); Glucose 216 mg/dl (70-99); Potassium 3.8 mmol/L (3.5-5.1); Sodium 134 mmol/L (135-145); eGFR > 60.00
[2025-06-13] MEDS: NOVOLOG FLEXPEN-LOW RESISTANCE 2 UNITS SC (05:23)
[2025-06-13 05:32] LABS: Glucose - Point of Care 246 mg/dl (70-99)
--- NOTE | 2025-06-13 05:51 | PTCARENOTE ---
Patient tolerating tube feeds at goal. No coffee ground output. No further fevers overnight. Trialing off restraints. Will continue to monitor.
[2025-06-13] MEDS: PROTONIX IV 40 MG IV ×2 (08:19→20:02)
[2025-06-13] MEDS: NSS (PRESERVATIVE FREE) 10 ML IV ×2 (08:19→20:02)
--- NOTE | 2025-06-13 09:46 | PTCARENOTE ---
Assumed care of patient this morning. He had his eyes open, would blink on command but made no attempt to say any words. Pt also squeezed my hands and smiled when I asked him to. Pt in SR on monitor and on RA. Lungs diminished. PEG tube and pt
tolerating TF, only 10 ml residual. Abdomen distended but soft and present BS. SCDs and Q2T maintained. All IV's flushed and patent. Assessment, care and VS as charted.
[2025-06-13 11:58] LABS: Glucose - Point of Care 284 mg/dl (70-99)
--- NOTE | 2025-06-13 14:23 | W.PN.HOSP.TC ---
Today's Communication/Plan
-
f/u cultures and hemodynamics
tube feeds
monitor hgb
Assessment / Plan
Assessment / Plan
Impression
Patient is an 80y M with PMH significant for brainstem CVA, dementia, GERD and polyneuropathy who presents to ED from local [place] for evaluation of GI bleeding.
Acute gastrointestinal hemorrhage secondary to gastric ulcer secondary to Plavix
Acute blood loss anemia
Hemorrhagic shock with hypotension
Acute kidney injury
Hyperkalemia
Other conditions
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
PEG tube in place.
ASCVD.
Benign hypertension.
IDDM.
BPH
Dementia vascular type without behavioral disturbance
Sacral pressure ulcer stage II present on admission
Plan
Acute no bleeding.
Acute blood loss anemia
Suspect upper GI source given presentation including hypotension, acute blood loss anemia, elevated BUN
Differential diagnosis possibly esophagitis, gastric ulcers, hemorrhagic gastritis.
All of above in the settings of dual antiplatelet therapy with aspirin and Plavix.
Admitted to IMU.
Acute blood loss anemia with appropriate response to red blood cell transfusion hemoglobin 7.9�10 (10 at the baseline). Reported last dose of Plavix 06/08
With DAPT related platelet dysfunction received platelet transfusion on 06/09
EGD 06/10 with findings consistent of old and fresh blood in the stomach mostly fundus. Suspected bleeding ulcer without clear identification of a source and attempt of clip placement.
Angiogram performed after EGD on 06/10 with no active bleeding
Remains hemodynamically stable with hemoglobin at 10.4 (Status post 3 units of packed red blood cells) antiplatelet received on 06/09)
Gastric lavage on 06/11 with clear return
Resume tube feeds
Transition off IV Protonix drip to twice daily.
Transition to oral Protonix if tolerates tube feeds over the next 24 hours
Plavix had been discontinued indefinitely
Acute kidney injury. Creatinine 1.4, improved
Hyperkalemia. Potassium 6.9, resolved
All in the settings of hypotension and hemorrhagic shock as well as antihypertensive medications including ARB, Aldactone
El catheter placed in ER, removed
Hold antihypertensives including ARB and potassium sparing diuretics
Improved with IV fluids and transfusions
Avoid further hypotension
Hyperkalemia without EKG changes
Potassium has been temporized in ED
ASCVD.
Benign hypertension
Echo 09/07 with preserved biventricular function no significant valvular abnormalities.
Holding antihypertensive regimen.
History medullary CVA with significant neurologic sequela including dysphagia/aphasia status post PEG tube.
Holding aspirin and Plavix acutely
IDDM
Hemoglobin A1c 8.0
Permissive hyperglycemia while off tube feeding
Given n.p.o. status reduced basal insulin by 50% down to 15 units
Resume tube feeding and adjust insulin dose accordingly.
Continue basal bolus protocol with serial Accu-Cheks
BPH
El placed in ED
Dementia likely vascular possibly senile type.
Hold trazodone acutely
Mechanical DVT prophylaxis
DNR
Update 06/13 - Spiked temp overnight; Cultures sent. COVID and Flu neg. for vest on his own. Will monitor off antibiotics. Low threshold to initiate antibiotics monitoring hemodynamics. Possibly postprocedural. Urine negative. Tolerating tube
feedings well;
Anticipated Discharge: > 48 hours
Subjective/Interval History
-
Date of Service: June 13, 2025
tolerating feeds; spiked temp 1 episode 101.4 overnight
Objective Data
-
Labs:
Laboratory Results
06/13/25
03:30
WBC 8.4
Hgb 10.4 L
Hct 31.2 L
Plt Count 188
Sodium 134 L
Potassium 3.8
Chloride 110 H
Carbon Dioxide 18 L
BUN 14
Creatinine 0.6 L
Glucose 216 H
Calcium 8.3 L
Vital Signs:
Vital Signs
Temp Pulse Resp BP Pulse Ox
98.5 F 94 14 154/82 98
06/13/25 11:00 06/13/25 09:00 06/13/25 09:00 06/13/25 09:00 06/13/25 09:36
I&O
06/12/25 06/13/25 06/14/25
06:59 06:59 06:59
Intake Total 180 / 180 2014
Output Total 2165 / 2165
Balance -1985 / -1985 2014
Review of Systems
-
All other systems: Reviewed and negative
Data Reviewed
-
Diagnostic Radiology: Report Reviewed by me
Labs: Labs Reviewed by me
--- NOTE | 2025-06-13 16:11 | CM ---
Chart reviewed; Case Management will continue to monitor and will support discharge planning needs when identified
[2025-06-13 17:35] LABS: Glucose - Point of Care 252 mg/dl (70-99)
[2025-06-13] MEDS: APRESOLINE 10 MG IV (18:05)
[2025-06-13] MEDS: LANTUS 0.15 UNITS SC (20:02)
[2025-06-13 20:16] LABS: Glucose - Point of Care 264 mg/dl (70-99)
[2025-06-13 23:44] LABS: Glucose - Point of Care 299 mg/dl (70-99)
[2025-06-14] VITALS (23 sets, daily range): BP systolic 113–166; BP diastolic 61–88
[2025-06-14 04:04] LABS: Hematocrit 31.6 % (39.0-52.0); Hemoglobin 10.6 g/dL (13.0-18.0); Mean Corp Hgb Conc. 33.5 g/dL (33.0-37.0); Mean Corpuscular Volume 86.6 fL (80.0-94.0); Platelet Count 198 10^3/uL (130-400); Red Cell Dist. Width 14.6 % (11.5-14.5)
[2025-06-14 04:20] LABS: Blood Urea Nitrogen 11 mg/dl (9-20); Calcium 8.8 mg/dl (8.4-10.2); Carbon Dioxide 20 mmol/L (22-30); Chloride 109 mmol/L (98-107); Glucose 314 mg/dl (70-99); Potassium 4.0 mmol/L (3.5-5.1); Sodium 135 mmol/L (135-145); eGFR > 60.00
[2025-06-14] MEDS: NOVOLOG FLEXPEN-LOW RESISTANCE 4 UNITS SC ×2 (05:26→12:07)
[2025-06-14 05:37] LABS: Glucose - Point of Care 319 mg/dl (70-99)
--- NOTE | 2025-06-14 06:14 | PTCARENOTE ---
No acute events overnight. Tolerating tube feeds at goal. Afebrile. Will continue to monitor.
[2025-06-14] MEDS: PROTONIX IV 40 MG IV (09:29)
[2025-06-14] MEDS: NSS (PRESERVATIVE FREE) 10 ML IV (09:29)
[2025-06-14 11:58] LABS: Glucose - Point of Care 326 mg/dl (70-99)
--- NOTE | 2025-06-14 15:03 | W.PN.HOSP.TC ---
Today's Communication/Plan
-
f/u cultures, fever curve
switch back to home insulin dosing
ppi switched to po
resume asa and monitor hgb
Assessment / Plan
Assessment / Plan
Impression
Patient is an 80y M with PMH significant for brainstem CVA, dementia, GERD and polyneuropathy who presents to ED from local [place] for evaluation of GI bleeding.
Acute gastrointestinal hemorrhage secondary to gastric ulcer secondary to Plavix
Acute blood loss anemia
Hemorrhagic shock with hypotension
Acute kidney injury
Hyperkalemia
Other conditions
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
PEG tube in place.
ASCVD.
Benign hypertension.
IDDM.
BPH
Dementia vascular type without behavioral disturbance
Sacral pressure ulcer stage II present on admission
Plan
Acute no bleeding.
Acute blood loss anemia
Suspect upper GI source given presentation including hypotension, acute blood loss anemia, elevated BUN
Differential diagnosis possibly esophagitis, gastric ulcers, hemorrhagic gastritis.
All of above in the settings of dual antiplatelet therapy with aspirin and Plavix.
Admitted to IMU.
Acute blood loss anemia with appropriate response to red blood cell transfusion hemoglobin 7.9�10 (10 at the baseline). Reported last dose of Plavix 06/08
With DAPT related platelet dysfunction received platelet transfusion on 06/09
EGD 06/10 with findings consistent of old and fresh blood in the stomach mostly fundus. Suspected bleeding ulcer without clear identification of a source and attempt of clip placement.
Angiogram performed after EGD on 06/10 with no active bleeding
Remains hemodynamically stable with hemoglobin at 10.4 (Status post 3 units of packed red blood cells) antiplatelet received on 06/09)
Gastric lavage on 06/11 with clear return
Resume tube feeds
Transition off IV Protonix drip to twice daily.
Transition to oral Protonix if tolerates tube feeds over the next 24 hours
Plavix had been discontinued indefinitely
Acute kidney injury. Creatinine 1.4, improved
Hyperkalemia. Potassium 6.9, resolved
All in the settings of hypotension and hemorrhagic shock as well as antihypertensive medications including ARB, Aldactone
El catheter placed in ER, removed
Hold antihypertensives including ARB and potassium sparing diuretics
Improved with IV fluids and transfusions
Avoid further hypotension
Hyperkalemia without EKG changes
Potassium has been temporized in ED
ASCVD.
Benign hypertension
Echo 09/07 with preserved biventricular function no significant valvular abnormalities.
Holding antihypertensive regimen.
History medullary CVA with significant neurologic sequela including dysphagia/aphasia status post PEG tube.
Holding aspirin and Plavix acutely
IDDM
Hemoglobin A1c 8.0
Permissive hyperglycemia while off tube feeding
Given n.p.o. status reduced basal insulin by 50% down to 15 units
Resume tube feeding and adjust insulin dose accordingly.
Continue basal bolus protocol with serial Accu-Cheks
BPH
El placed in ED
Dementia likely vascular possibly senile type.
Hold trazodone acutely
Mechanical DVT prophylaxis
DNR
Update 06/13 - Spiked temp overnight; Cultures sent. COVID and Flu neg. for vest on his own. Will monitor off antibiotics. Low threshold to initiate antibiotics monitoring hemodynamics. Possibly postprocedural. Urine negative. Tolerating tube
feedings well;
Update 06/14: F/u cultures; no further temps off abx.resumed back home dose lantus for hyperglycemia. switched ppi to PO; added back asa and monitor hgb
Anticipated Discharge: 24 - 48 hours
Subjective/Interval History
-
Date of Service: June 14, 2025
no acute events
Objective Data
-
Labs:
Laboratory Results
06/14/25
03:34
WBC 7.9
Hgb 10.6 L
Hct 31.6 L
Plt Count 198
Sodium 135
Potassium 4.0
Chloride 109 H
Carbon Dioxide 20 L
BUN 11
Creatinine 0.5 L
Glucose 314 H
Calcium 8.8
Vital Signs:
Vital Signs
Temp Pulse Resp BP Pulse Ox
99.1 F 92 15 146/75 99
06/14/25 11:00 06/14/25 10:00 06/14/25 10:00 06/14/25 10:00 06/14/25 10:00
I&O
06/13/25 06/14/25 06/15/25
06:59 06:59 06:59
Intake Total 2014 2910 / 2910
Balance 20140 / 2910
Review of Systems
-
All other systems: Reviewed and negative
Physical Exam
-
General: Well Developed and No Apparent Distress
HEENT: Normocephalic, Atraumatic and Moist Mucous Membranes
Respiratory: Clear to Auscultation
Cardiac: Regular Rhythm and S1/S2; Negative Murmur, Rub or Gallop
GI: Soft, Nontender, Nondistended, Normal Bowel Sounds and Peg Tube; Negative Organomegaly
Rectal: Deferred by Provider
Musculoskeletal: No Clubbing, No Cyanosis and No Edema
Skin: Negative Rash
Neuro: Awake, Alert and Other (Aphasic at the baseline. Following simple commands.)
Data Reviewed
-
Diagnostic Radiology: Report Reviewed by me
Labs: Labs Reviewed by me
--- NOTE | 2025-06-14 15:53 | PTCARENOTE ---
Rec'd pt this AM. non verbal but will nod occasionally. Family at bedside. Resting comfortably. vital signs stable.
[2025-06-14] MEDS: LOW STRENGTH ASPIRIN 81 MG PO (17:10)
[2025-06-14] MEDS: NOVOLOG FLEXPEN-LOW RESISTANCE 3 UNITS SC (17:11)
[2025-06-14 17:18] LABS: Glucose - Point of Care 298 mg/dl (70-99)
--- NOTE | 2025-06-14 21:17 | PTCARENOTE ---
Assumed care of Pt from dayshift RM after change of shift report. Pt opens eyes to verbal response. mouths yes and no on occasion, mainly nonverbal at baseline. satting 100% on RA. VS WNL. new tubing and TF hung. TF at 45ml/hr with 25 water flush,
via peg. assessment as documented. call light in reach.
[2025-06-14] MEDS: PROTONIX 40 MG PO (21:23)
[2025-06-14 23:13] LABS: Glucose - Point of Care 322 mg/dl (70-99)
[2025-06-14] MEDS: LANTUS 0.31 UNITS SC (23:14)
[2025-06-15] VITALS (24 sets, daily range): BP systolic 99–153; BP diastolic 48–82
[2025-06-15 01:04] LABS: Glucose - Point of Care 332 mg/dl (70-99)
[2025-06-15] MEDS: NOVOLOG FLEXPEN-LOW RESISTANCE 4 UNITS SC ×3 (01:16→12:47)
[2025-06-15 06:10] LABS: Blood Urea Nitrogen 14 mg/dl (9-20); Calcium 8.9 mg/dl (8.4-10.2); Carbon Dioxide 22 mmol/L (22-30); Chloride 109 mmol/L (98-107); Glucose 289 mg/dl (70-99); Potassium 4.1 mmol/L (3.5-5.1); Sodium 137 mmol/L (135-145); eGFR > 60.00
[2025-06-15 06:11] LABS: Glucose - Point of Care 337 mg/dl (70-99)
[2025-06-15 06:13] LABS: Hematocrit 28.5 % (39.0-52.0); Hemoglobin 9.5 g/dL (13.0-18.0); Mean Corp Hgb Conc. 33.3 g/dL (33.0-37.0); Mean Corpuscular Volume 85.6 fL (80.0-94.0); Platelet Count 213 10^3/uL (130-400); Red Cell Dist. Width 14.7 % (11.5-14.5)
[2025-06-15] MEDS: LOW STRENGTH ASPIRIN 81 MG TUBE (10:00)
[2025-06-15] MEDS: PROTONIX IV 40 MG IV ×2 (10:00→20:41)
[2025-06-15] MEDS: NSS (PRESERVATIVE FREE) 10 ML IV ×2 (10:00→20:41)
[2025-06-15 12:37] LABS: Glucose - Point of Care 332 mg/dl (70-99)
[2025-06-15] MEDS: LIORESAL 2.5 MG TUBE (12:48)
--- NOTE | 2025-06-15 13:28 | W.DS.TRANS ---
Addendum entered and electronically signed by Royce Connelly MD 06/16/25 12:09:
Insulin Lantus increased to 41 units HS
Original Note:
DC Summary - [employer]
-
Discharge Instructions:
Discharge Diagnosis/Procedures Acute gastrointestinal hemorrhage secondary to
gastric ulcer secondary to Plavix
Acute blood loss anemia
Hemorrhagic shock with hypotension
Acute kidney injury
Hyperkalemia
Other conditions
History of medullary stroke with chronic aphasia
/dysphagia and functional quadriplegia
PEG tube in place.
ASCVD.
Benign hypertension.
IDDM.
BPH
Dementia vascular type without behavioral
disturbance
Sacral pressure ulcer stage II present on
admission
Diet Tube feeding
Instructions:
Stand-Alone Forms:
Changes to Home Medications: Yes
Discharge Medications:
DC Medications w/original date entered in [employer]
cyanocobalamin (vitamin B-12) 1,000 mcg tablet 1,000 mcg feeding tube DAILY Supplement #0 tabs 09/11/22
acetaminophen 160 mg/5 mL oral elixir 640 mg feeding tube Q4HPRN PRN MILD PAIN, FEVER>100.4 09/29/22
atorvastatin 80 mg tablet 80 mg feeding tube QPM High cholesterol 09/29/22
bisacodyl 10 mg rectal suppository 10 mg NM DAILYPRN PRN q 3 days when no BM & MOM/Lactulose is ineffective 09/29/22
docusate sodium 50 mg/5 mL oral liquid 100 mg feeding tube BID Constipation 09/29/22
magnesium hydroxide 400 mg/5 mL oral suspension (Milk of Magnesia) 30 ml PO HSPRN PRN CONSTIPATION 09/29/22
sennosides 8.8 mg/5 mL oral syrup (senna) 17.6 mg feeding tube BID Constipation 09/29/22
aspirin 81 mg chewable tablet 81 mg feeding tube DAILY Blood Clot Prevention/Tx 11/01/23
baclofen 5 mg tablet 2.5 mg feeding tube DAILY Pain 11/01/23
baclofen 5 mg tablet 5 mg feeding tube HS 11/01/23
cholecalciferol (vitamin D3) 1,250 mcg (50,000 unit) tablet 1,250 mcg feeding tube QMONTH Supplement 11/01/23
diclofenac sodium 1 % topical gel 2 g topical BID right shoulder 11/01/23
diclofenac sodium 1 % topical gel 2 g topical DAILYPRN PRN lower back, when lidocaine not one 11/01/23
diclofenac sodium 1 % topical gel 2 g topical Q8H b/l cervical, neck 11/01/23
escitalopram oxalate 20 mg tablet (Lexapro) 20 mg feeding tube QPM Mental Health/Anxiety 11/01/23
insulin aspart U-100 100 unit/mL (3 mL) subcutaneous pen (Novolog FlexPen U-100 Insulin aspart) 0 - 10 sliding scale dose SC ACHS Diabetes 11/01/23
insulin glargine 100 unit/mL (3 mL) subcutaneous pen (Lantus Solostar U-100 Insulin) 31 unit SC HS Diabetes 11/01/23
lidocaine 4 % topical patch 1 patch topical DAILY@0600 lower back 11/01/23
metformin 1,000 mg tablet 1,000 mg feeding tube BID Diabetes 11/01/23
phenol-phenolate sodium mucosal aerosol spray 1 spray PO Q2HPRN PRN sore throat 11/01/23
trazodone 100 mg tablet 100 mg feeding tube HS Sleep 11/01/23
ciclopirox See Rx Instructions .Route .COMPLEX 06/09/25
glucagon HCl 1 mg solution for injection (Glucagon (HCl) Emergency Kit) 1 mg BID PRN Hypoglycemia 06/09/25
guaifenesin 10 ml feeding tube Q6H PRN Cough/congestion 06/09/25
pantoprazole 40 mg granules delayed-release for susp in packet (Protonix) 40 mg G-tube DAILY #60 ea 06/15/25
Home Medication Changes
Stopped Coreg, olmesartan, Plavix, Spironolactone
Pending Results: No
--- NOTE | 2025-06-15 15:25 | CM ---
Following up on Patient. Medical Attending stated that patient can discharge today. NAKITA Thurman confirm with [facility] [place] that patient can return and updates were sent.
NAKITA Thurman completed IMM with daughter.
Report: [phone]

Transport arranged btw 6:30pm
PLAN: Return to [facility]
[2025-06-15] MEDS: DULCOLAX 10 MG RECTAL (16:43)
--- NOTE | 2025-06-15 17:10 | PTCARENOTE ---
Patients abdomen round, distended with hyperactive bowel sounds. No bowel movement documented during hospital stay. Notified Dr. Connelly and tests ordered, Dulcolax administered. Discharge held until test results as per Dr. Connelly.
[2025-06-15] MEDS: NOVOLOG FLEXPEN-LOW RESISTANCE 3 UNITS SC ×2 (17:45→23:56)
[2025-06-15] MEDS: LEXAPRO 20 MG TUBE (17:45)
[2025-06-15] MEDS: LIPITOR 80 MG TUBE (17:45)
[2025-06-15 17:56] LABS: Glucose - Point of Care 261 mg/dl (70-99)
--- NOTE | 2025-06-15 19:14 | PTCARENOTE ---
Patient had small loose stool, abdominal study completed. Patients discharge has been delayed until tomorrow. I notified son , Adriel of change of plans. I also called the son and had him speak to the patient. Patient was notified of new plan of
care, he answered 'ok'.
[2025-06-15] MEDS: DESYREL 100 MG TUBE (20:41)
[2025-06-15] MEDS: GLUCOPHAGE 1000 MG TUBE (20:41)
[2025-06-15] MEDS: LIORESAL 5 MG TUBE (20:42)
--- NOTE | 2025-06-15 22:42 | PTCARENOTE ---
Caring for pt overnight. Large black stool resulted from suppository given earlier. VSS. Denies pain. Pt is talking in one-two word sentences, able to answer yes or no. Pt was tearful and crying, requesting to talk to family, called son. NSR on
monitor. Remains RA. PEG in place, TF running at goal. Abdomen still round & distended but soft. Q2T. BUE +2 edema. BL pedals +1. PT comfortable. Will continue to monitor.
[2025-06-15] MEDS: LANTUS 0.31 UNITS SC (23:56)
[2025-06-16] VITALS (14 sets, daily range): BP systolic 93–123; BP diastolic 48–66; BMI 26.8
[2025-06-16 00:07] LABS: Glucose - Point of Care 294 mg/dl (70-99)
[2025-06-16] MEDS: NOVOLOG FLEXPEN-LOW RESISTANCE 4 UNITS SC (05:22)
[2025-06-16 05:31] LABS: Glucose - Point of Care 328 mg/dl (70-99)
[2025-06-16 05:39] LABS: Hematocrit 29.1 % (39.0-52.0); Hemoglobin 9.5 g/dL (13.0-18.0); Mean Corp Hgb Conc. 32.6 g/dL (33.0-37.0); Mean Corpuscular Volume 89.0 fL (80.0-94.0); Platelet Count 214 10^3/uL (130-400); Red Cell Dist. Width 14.6 % (11.5-14.5)
[2025-06-16] MEDS: GLUCOPHAGE 1000 MG TUBE (08:13)
[2025-06-16] MEDS: LOW STRENGTH ASPIRIN 81 MG TUBE (08:13)
[2025-06-16] MEDS: LIORESAL 2.5 MG TUBE (08:13)
[2025-06-16] MEDS: PROTONIX IV 40 MG IV (08:14)
[2025-06-16] MEDS: NSS (PRESERVATIVE FREE) 10 ML IV (08:15)
[2025-06-16] MEDS: LANTUS 0.1 UNITS SC (10:21)
[2025-06-16 12:50] LABS: Glucose - Point of Care 292 mg/dl (70-99)
--- NOTE | 2025-06-16 12:54 | CM ---
Addendum entered by Christine Hernandez 06/16/25 13:08:
1400 belt picker, both SNF and son damon
Original Note:
CM reviewed chart and noted dc order
Bed confirmed with [facility]/bubba Mcnamara
Update to son/Morel phone
IMM completed day prior and transport forms on chart
Discharge Disposition- return [facility] via [facility]
Report: [phone]
[2025-06-16] MEDS: NOVOLOG FLEXPEN-LOW RESISTANCE 3 UNITS SC (12:59)
--- NOTE | 2025-06-16 13:51 | PTCARENOTE ---
Pt for dc to [facility], report given to JOVANNA Rios at [place].
--- NOTE | 2025-06-16 15:16 | W.PN.HOSP.TC ---
Today's Communication/Plan
-
Discharge +0.84 today pending return of bowel function and bowel movement.
Obstruction series with with mild distention, although with no evidence of obstruction.
Multiple BMs over the last 18 hours.
Tolerates tube feeds.
Noted hyperglycemic, dose of insulin adjusted.
Discharge back to nursing facility
Assessment / Plan
Assessment / Plan
Impression
Patient is an 80y M with PMH significant for brainstem CVA, dementia, GERD and polyneuropathy who presents to ED from local [place] for evaluation of GI bleeding.
Acute gastrointestinal hemorrhage secondary to gastric ulcer secondary to Plavix
Acute blood loss anemia
Hemorrhagic shock with hypotension
Acute kidney injury
Hyperkalemia
Other conditions
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
PEG tube in place.
ASCVD.
Benign hypertension.
IDDM.
BPH
Dementia vascular type without behavioral disturbance
Sacral pressure ulcer stage II present on admission
Plan
Acute no bleeding.
Acute blood loss anemia
Suspect upper GI source given presentation including hypotension, acute blood loss anemia, elevated BUN
Differential diagnosis possibly esophagitis, gastric ulcers, hemorrhagic gastritis.
All of above in the settings of dual antiplatelet therapy with aspirin and Plavix.
Admitted to IMU.
Acute blood loss anemia with appropriate response to red blood cell transfusion hemoglobin 7.9�10 (10 at the baseline). Reported last dose of Plavix 06/08
With DAPT related platelet dysfunction received platelet transfusion on 06/09
EGD 06/10 with findings consistent of old and fresh blood in the stomach mostly fundus. Suspected bleeding ulcer without clear identification of a source and attempt of clip placement.
Angiogram performed after EGD on 06/10 with no active bleeding
Remains hemodynamically stable with hemoglobin at 10.4 (Status post 3 units of packed red blood cells) antiplatelet received on 06/09)
Gastric lavage on 06/11 with clear return
Resume tube feeds
Transition off IV Protonix drip to twice daily.
Transition to oral Protonix if tolerates tube feeds over the next 24 hours
Plavix had been discontinued indefinitely
Acute kidney injury. Creatinine 1.4, improved
Hyperkalemia. Potassium 6.9, resolved
All in the settings of hypotension and hemorrhagic shock as well as antihypertensive medications including ARB, Aldactone
El catheter placed in ER, removed
Hold antihypertensives including ARB and potassium sparing diuretics
Improved with IV fluids and transfusions
Avoid further hypotension
Hyperkalemia without EKG changes
Potassium has been temporized in ED
ASCVD.
Benign hypertension
Echo 09/07 with preserved biventricular function no significant valvular abnormalities.
Holding antihypertensive regimen.
History medullary CVA with significant neurologic sequela including dysphagia/aphasia status post PEG tube.
Holding aspirin and Plavix acutely
IDDM
Hemoglobin A1c 8.0
Permissive hyperglycemia while off tube feeding
Given n.p.o. status reduced basal insulin by 50% down to 15 units
Resume tube feeding and adjust insulin dose accordingly.
Continue basal bolus protocol with serial Accu-Cheks
BPH
El placed in ED
Dementia likely vascular possibly senile type.
Hold trazodone acutely
Mechanical DVT prophylaxis
DNR
Update 06/13 - Spiked temp overnight; Cultures sent. COVID and Flu neg. for vest on his own. Will monitor off antibiotics. Low threshold to initiate antibiotics monitoring hemodynamics. Possibly postprocedural. Urine negative. Tolerating tube
feedings well;
Update 06/14: F/u cultures; no further temps off abx.resumed back home dose lantus for hyperglycemia. switched ppi to PO; added back asa and monitor hgb
Anticipated Discharge: Today
Subjective/Interval History
-
Date of Service: June 16, 2025
Objective Data
-
Labs:
Laboratory Results
06/16/25
05:16
WBC 8.2
Hgb 9.5 L
Hct 29.1 L
Plt Count 214
Vital Signs:
Vital Signs
Temp Pulse Resp BP Pulse Ox
98.2 F 75 11 112/54 99
06/16/25 07:45 06/16/25 13:00 06/16/25 13:00 06/16/25 13:00 06/16/25 13:00
I&O
06/15/25 06/16/25 06/17/25
06:59 06:59 06:59
Intake Total 840 / 840
Balance 840 / 840
Physical Exam
-
General: Well Developed and No Apparent Distress
HEENT: Normocephalic, Atraumatic and Moist Mucous Membranes
Respiratory: Clear to Auscultation
Cardiac: Regular Rhythm and S1/S2; Negative Murmur, Rub or Gallop
GI: Soft, Nontender, Nondistended, Normal Bowel Sounds and Peg Tube; Negative Organomegaly
Rectal: Deferred by Provider
Musculoskeletal: No Clubbing, No Cyanosis and No Edema
Skin: Negative Rash
Neuro: Awake, Alert and Other (Aphasic at the baseline. Following simple commands.)
== END 2025-06-16 14:20 | DRG 377 ==
LOC: IMU 02:59
PROVIDERS: Internal Medicine; Nurse Practitioner Gerontology; ADMITTING PHYSICIAN Hospitalist; ATTENDING PHYSICIAN Internal Medicine; CONSULT PHYSICIAN Internal Medicine Gastroenterology; EMERGENCY PHYSICIAN Emergency Medicine; FAMILY PHYSICIAN Student in an Organized Health Care Education/Training Program
PROC: 30233R1 Transfusion of Nonautologous Platelets into Peripheral Vein, Percutaneous Approach (ICD-10-PCS; 2025-06-09)
PROC: 30233N1 Transfusion of Nonautologous Red Blood Cells into Peripheral Vein, Percutaneous Approach (ICD-10-PCS; 2025-06-09)
PROC: 0W3P8ZZ Control Bleeding in Gastrointestinal Tract, Via Natural or Artificial Opening Endoscopic (ICD-10-PCS; 2025-06-10)
PROC: 0DB58ZX Excision of Esophagus, Via Natural or Artificial Opening Endoscopic, Diagnostic (ICD-10-PCS; 2025-06-10)
DX: K25.4 Chronic or unspecified gastric ulcer with hemorrhage (principal); R53.2 Functional quadriplegia; R57.8 Other shock; D62 Acute posthemorrhagic anemia; N17.9 Acute kidney failure, unspecified; F01.54 Vascular dementia, unspecified severity, with anxiety; D68.32 Hemorrhagic disorder due to extrinsic circulating anticoagulants; Z79.02 Long term (current) use of antithrombotics/antiplatelets; E87.5 Hyperkalemia; Z93.1 Gastrostomy status; I69.320 Aphasia following cerebral infarction; I69.391 Dysphagia following cerebral infarction; I25.10 Atherosclerotic heart disease of native coronary artery without angina pectoris; I10 Essential (primary) hypertension; Z79.4 Long term (current) use of insulin; E11.65 Type 2 diabetes mellitus with hyperglycemia; N40.0 Benign prostatic hyperplasia without lower urinary tract symptoms; L89.152 Pressure ulcer of sacral region, stage 2; K21.00 Gastro-esophageal reflux disease with esophagitis, without bleeding; Z79.82 Long term (current) use of aspirin; Z79.84 Long term (current) use of oral hypoglycemic drugs; Z79.899 Other long term (current) drug therapy; E78.00 Pure hypercholesterolemia, unspecified; K59.00 Constipation, unspecified; Z66 Do not resuscitate; Z74.01 Bed confinement status; Z11.52 Encounter for screening for COVID-19
CPT/HCPCS: 36430; 51702; 70450; 71045; 74022; 74175; 80048; 80053; 81003; 81015; 82962; 83036; 85014; 85018; 85025; 85027; 85610; 85730; 86850; 86900; 86901; 86920; 87040; 87070; 87205; 87502; 87811; 93005; 96365; 96366; 96375; 99291; J3480; P9016; P9073; Q9967

== ENCOUNTER 2025-06-18 17:31 | Emergency (ER) | payer MEDICARE, OTHER, SELFPAY ==
[2025-06-18 17:32] VITALS: BP 154/84
[2025-06-18 17:35] VITALS: BP 154/84
--- NOTE | 2025-06-18 17:38 | ED.GENMED ---
History of Present Illness
General
Chief Complaint: DVT/Possible Blood Clot
Source: patient
Exam Limitations: none
Time Seen by Provider: 06/18/25 17:34
Nursing documentation reviewed up to this point in time: agreed with
History of Present Illness
History of Present Illness:
see MDM
Past History
Past History
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
ED Past Surgical History: None
Social History
Tobacco: Non-smoker
Alcohol: None
Employment: Retired
Family History
Family History: Other (Reviewed and noncontributory)
Phy Exam
Physical Exam
Physical Exam:
see MDM
Course
Orders/Labs/Results
Orders:
Orders
06/18/25 17:56
Complete Blood Count/With Diff Urgent
Comprehensive Metabolic Panel Urgent
PTT Urgent
Prothrombin Time Urgent
Abnormal Lab Results
06/18/25
17:56
RBC 3.49 L 10^6/uL
(4.70-6.10)
Hgb 9.9 L g/dL
(13.0-18.0)
Hct 30.5 L %
(39.0-52.0)
MCHC 32.5 L g/dL
(33.0-37.0)
Absolute Monos (auto) 0.8 H 10^3/uL
(0.1-0.6)
Absolute Eos (auto) 1.2 H 10^3/uL
(0-0.7)
Lymphocytes % 17.2 L %
(20.5-51.1)
Eosinophils % 13.5 H %
(0-6)
Creatinine 0.5 L mg/dL
(0.7-1.3)
Glucose 190 H mg/dl
(70-99)
Total Protein 6.1 L g/dl
(6.3-8.2)
Albumin 3.4 L g/dl
(3.5-5.0)
06/18/25 17:56
06/18/25 17:56
Vital Signs
Initial and Last Documented VS:
Initial Vital Signs
BP
154/84
06/18/25 17:32
Last Documented Vital Signs
Temp Pulse Resp BP Pulse Ox
36.6 C 67 16 161/83 100
06/18/25 17:35 06/18/25 18:28 06/18/25 18:28 06/18/25 20:00 06/18/25 20:45
MDM/Problems Addressed
Differential Diagnosis Includes:
see MDM
MDM/Problems Addressed:
Note:
CHIEF COMPLAINT(S)
Pain and swelling in the arm.
HISTORY OF PRESENT ILLNESS
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
they faxed the report stating occlusive thrombus in the right brachial vein approximately no left upper extremity DVT
he has not had sob or tachycardia or hypoxia
pt is unable to provide history due to his aphasaia
minimal speakin gis his baseline
histor of gastric ulcer
was just hospitalized from 06/09 to 06/15 for UGI bleed with hemorrhagic shock, requiring multiple transfusions, he had fresh blood in his fundus , clip was placed; cta showed no active bleeding following that
no AC currently
REVIEW OF SYSTEMS
- Musculoskeletal: Swelling and pain in the arm.
- Neurological: No changes reported.
- Vascular: Pulse present in the affected limb.
PHYSICAL EXAM
GENERAL: Alert , in no apparent distress responds to verbal stimuli but does not speak much
EYE: pupils equal and reactive
NECK: Supple
ENT: o/p clr, mmm.
CARDIAC: Regular rate and rhythm .
LUNGS: Clear breath sounds bilaterally, no acute respiratory distress, no wheezes/rales/rhonchi
ABDOMEN: Soft, without focal tenderness, no r/g, no cvat, normal bowel sounds
NEUROLOGICAL: Eyes closed, awakes to verbal stimuli, follows some simple commands, aphasic mostly
SKIN: Warm and dry, skin intact.
MUSCULOSKELETAL:
Bilateral upper extremities with some mild edema, normal pulses, no skin changes
Paraplegia lower extremities
Right upper extremity, minimal left upper extremity, follows some commands intermittently
PSYCH: Normal and appropriate interaction.
PROBLEM LIST
Acute:
DVT, edema
PLAN
Speak with specialist regarding patient's risk for anticoagulation
DIFFERENTIAL DIAGNOSIS
The Differential Diagnosis includes, in no particular order and is not limited to:
- Muscular strain
- Tendinitis
- Bursitis
- Fracture
- Deep vein thrombosis
- Cellulitis
- Lymphedema
- Vascular injury
- Nerve injury
- Compartment syndrome
83-year-old male, history of a significant stroke, nonverbal mostly and nonambulatory at baseline presents after recent admission for an upper GI bleed causing hemorrhagic shock requiring multiple units of blood presents for known DVT in the right
upper extremity that was seen on ultrasound today. Patient has no tachypnea or tachycardia or hypoxia. The arm is mildly edematous with pulses, no skin changes, perfused. I discussed this case with ED attending Dr. wright as well as dr. handley
and dr. sanchez heme-onc and GI who agree that the patient is too high risk for anticoagulation at this time. I spoke with the patient's daughter who is aware of this clot and the fact that we are going to hold anticoagulation for now. I will
return him to his [facility] as there is no indication to hospitalize him
*Pulse Oximetry
SaO2: 98
Oxygen Mode of Delivery: Room air
Patient hypoxic: no (99)
*Critical Care Note
Total Time (30-74mins, 75-104mins- exclusive of procedures): Not Applicable
Update Note
Update Note:
ED Attending Note
-
Portions of this chart may have been created with voice recognition software.� Occasional wrong word or��sound alike� substitutions may have occurred due to the inherent limitations of voice recognition software.
Discharge Plan
Departure
Patient Disposition: [facility]
Date of Disposition: 06/18/25
Time of Disposition: 19:10
Patient with high blood pressure during this ER visit?: No
Condition: Fair
Covid-19: Not Applicable
Discharge Problem:
Deep venous thrombosis
Instructions: Deep Vein Thrombosis (Blood Clots in the Legs) (DC)
Prescriptions:
No Action
cyanocobalamin (vitamin B-12) 1,000 mcg Tablet
1,000 mcg feeding tube DAILY Qty: 0 0RF
magnesium hydroxide [Milk of Magnesia] 400 mg/5 mL Suspension
30 ml PO HSPRN PRN (Reason: CONSTIPATION)
acetaminophen 160 mg/5 mL Elixir
640 mg feeding tube Q4HPRN PRN (Reason: MILD PAIN, FEVER>100.4)
docusate sodium 50 mg/5 mL liquid
100 mg feeding tube BID
atorvastatin 80 mg tablet
80 mg feeding tube QPM
sennosides [senna] 8.8 mg/5 mL syrup
17.6 mg feeding tube BID
bisacodyl 10 mg suppository
10 mg NE DAILYPRN PRN (Reason: q 3 days when no BM & MOM/Lactulose is ineffective)
lidocaine 4 % Adhesive Patch,Medicated
1 patch TOPICAL DAILY@0600
phenol-phenolate sodium Aerosol,Parkman
1 spray PO Q2HPRN PRN (Reason: sore throat)
trazodone 100 mg Tablet
100 mg feeding tube HS
metformin 1,000 mg Tablet
1,000 mg feeding tube BID
aspirin 81 mg Tablet,Chewable
81 mg feeding tube DAILY
escitalopram oxalate [Lexapro] 20 mg Tablet
20 mg feeding tube QPM
diclofenac sodium 1 % Gel
2 g TOPICAL Q8H
diclofenac sodium 1 % Gel
2 g TOPICAL BID
diclofenac sodium 1 % Gel
2 g TOPICAL DAILYPRN PRN (Reason: lower back, when lidocaine not one)
cholecalciferol (vitamin D3) 1,250 mcg (50,000 unit) Tablet
1,250 mcg feeding tube QMONTH
Rx Instructions:
every Sunday of each month
baclofen 5 mg Tablet
2.5 mg feeding tube DAILY
baclofen 5 mg Tablet
5 mg feeding tube HS
insulin aspart U-100 [Novolog FlexPen U-100 Insulin] 100 unit/mL (3 mL) insulin pen
0 - 10 sliding scale dose SC ACHS
Patient Comments:
0-200=0 units, 201-250=2units, 251-300=4 units, 301-350=6 units, 351-400=8 units, >400=10 units call MD
ciclopirox
See Rx Instructions .ROUTE .COMPLEX
Rx Instructions:
Apply to affected finger nails daily for nail fungus daily
guaifenesin 100 mg/5 ml
10 ml feeding tube Q6H PRN (Reason: Cough/congestion)
pantoprazole [Protonix] [address] for susp in packet
40 mg G-tube DAILY Qty: 60 0RF
insulin glargine [Lantus Solostar U-100 Insulin] 100 unit/mL (3 mL) Insulin Pen
41 unit SC HS Qty: 0 0RF
Referrals:
Aleksander Vasquez DO [Family Provider, Family Practice]
Activity Restrictions/Additional Instructions:
We are aware of his blood clot in his right brachial vein. I spoke with both the oncology hematology doctor as well as the GI doctor and because of his recent GI bleed he is not a candidate for anticoagulation at this point. They recommended that
you just watch the alarm for color change, check a pulse, make sure he is not having signs of a blood clot in his lungs like tachycardia, tachypnea, hypoxia etc. if he does have those please return to the emergency department. I spoke with his
daughter who is aware of this
Interventions
Interventions:
*Risk Screen - Suicide Last Done: 06/18/25 17:36
*General Assessment Last Done: 06/18/25 17:36
*Neglect/Abuse Screening Last Done: 06/18/25 17:36
*ED- Fall Risk Assessment Last Done: 06/18/25 17:36
*ED COVID-19 Vaccine History Last Done: 06/18/25 17:36
*ED Influenza Vaccine History Last Done: 06/18/25 17:36
*Nursing Disposition Last Done: 06/18/25 20:46
ED- Cardiac Assessment Last Done: 06/18/25 17:36
ED- Pulmonary Assessment Last Done: 06/18/25 17:36
ED-Peripheral Vascular Assessment Last Done: 06/18/25 17:39
ED-Skin Assessment Last Done: 06/18/25 17:36
Discharge Date and Time
Discharge Date/Time: 06/18/25 20:56
Print Language: [place]
[2025-06-18 18:00] VITALS: BP 136/74
[2025-06-18 18:05] LABS: Hematocrit 30.5 % (39.0-52.0); Hemoglobin 9.9 g/dL (13.0-18.0); Mean Corp Hgb Conc. 32.5 g/dL (33.0-37.0); Mean Corpuscular Volume 87.4 fL (80.0-94.0); Nucleated Red Blood Cells % 0 % (-); Platelet Count 251 10^3/uL (130-400); Red Cell Dist. Width 14.5 % (11.5-14.5)
[2025-06-18 18:15] LABS: APTT 26.2 Sec (23.4-35.0); INR 0.96; PT 13.3 Sec (11.4-14.6)
[2025-06-18 18:22] LABS: ALT (SGPT) 18 U/L (0-50); AST (SGOT) 19 U/L (17-59); Albumin 3.4 g/dl (3.5-5.0); Alkaline Phosphatase 50 U/L (38-126); Blood Urea Nitrogen 19 mg/dl (9-20); Calcium 9.0 mg/dl (8.4-10.2); Carbon Dioxide 25 mmol/L (22-30); Chloride 105 mmol/L (98-107); Glucose 190 mg/dl (70-99); Potassium 4.1 mmol/L (3.5-5.1); Sodium 136 mmol/L (135-145); Total Protein 6.1 g/dl (6.3-8.2); eGFR > 60.00
[2025-06-18 19:00] VITALS: BP 119/65
[2025-06-18 20:00] VITALS: BP 161/83
== END 2025-06-18 20:56 ==
LOC: EMR 17:31
PROVIDERS: Physician Assistant; EMERGENCY PHYSICIAN Emergency Medicine; FAMILY PHYSICIAN Student in an Organized Health Care Education/Training Program
DX: I82.621 Acute embolism and thrombosis of deep veins of right upper extremity (principal); E11.9 Type 2 diabetes mellitus without complications; I10 Essential (primary) hypertension; E78.00 Pure hypercholesterolemia, unspecified; I69.320 Aphasia following cerebral infarction; I69.369 Other paralytic syndrome following cerebral infarction affecting unspecified side; G82.20 Paraplegia, unspecified; I65.1 Occlusion and stenosis of basilar artery; Z79.84 Long term (current) use of oral hypoglycemic drugs; Z79.4 Long term (current) use of insulin; Z79.82 Long term (current) use of aspirin
CPT/HCPCS: 99283; 80053; 85025; 85610; 85730

== ENCOUNTER → 2025-07-22 10:33 | Outpatient (REF) | payer OTHER, MEDICARE, SELFPAY ==
[2025-07-22 13:20] LABS: Hematocrit 32.2 % (39.0-52.0); Hemoglobin 10.3 g/dL (13.0-18.0); Mean Corp Hgb Conc. 32.0 g/dL (33.0-37.0); Mean Corpuscular Volume 85.4 fL (80.0-94.0); Nucleated Red Blood Cells % 0 % (-); Platelet Count 284 10^3/uL (130-400); Red Cell Dist. Width 14.3 % (11.5-14.5)
[2025-07-22 13:49] LABS: Glycohemoglobin (HgbA1c) 8.3 % (4.0-5.9)
[2025-07-22 14:12] LABS: ALT (SGPT) 18 U/L (0-50); AST (SGOT) 19 U/L (17-59); Albumin 3.6 g/dl (3.5-5.0); Alkaline Phosphatase 58 U/L (38-126); Blood Urea Nitrogen 20 mg/dl (9-20); Calcium 8.9 mg/dl (8.4-10.2); Carbon Dioxide 28 mmol/L (22-30); Chloride 98 mmol/L (98-107); Glucose 267 mg/dl (70-99); HDL Cholesterol 21 mg/dl; LDL Cholesterol, Calculated 24 mg/dl; Potassium 4.4 mmol/L (3.5-5.1); Sodium 134 mmol/L (135-145); Total Protein 6.3 g/dl (6.3-8.2); Very Low Density Lipoprotein 29 mg/dl (0-30); eGFR > 60.00
== END ==
LOC: OLABN 10:33
PROVIDERS: ATTENDING PHYSICIAN Student in an Organized Health Care Education/Training Program
DX: R78.5 Finding of other psychotropic drug in blood (principal); I69.30 Unspecified sequelae of cerebral infarction; E11.9 Type 2 diabetes mellitus without complications
CPT/HCPCS: 36415; 80053; 80061; 83036; 85025

== ENCOUNTER → 2025-08-20 11:58 | Outpatient (REF) | payer OTHER, MEDICARE, SELFPAY ==
[2025-08-20 13:08] LABS: Blood Urea Nitrogen 19 mg/dl (9-20); Calcium 9.1 mg/dl (8.4-10.2); Carbon Dioxide 30 mmol/L (22-30); Chloride 97 mmol/L (98-107); Glucose 253 mg/dl (70-99); Magnesium 1.8 mg/dl (1.6-2.3); Potassium 4.3 mmol/L (3.5-5.1); Sodium 132 mmol/L (135-145); eGFR > 60.00
[2025-08-20 15:41] LABS: Albumin 3.6 g/dl (3.5-5.0)
== END ==
LOC: OLABN 11:58
PROVIDERS: ATTENDING PHYSICIAN Student in an Organized Health Care Education/Training Program
DX: R78.5 Finding of other psychotropic drug in blood (principal)
CPT/HCPCS: 36415; 80048; 82040; 83735